=== PATIENT | male | born 1955 | race Caucasian/White ===

== ENCOUNTER 2019-12-25 16:27 | Inpatient (IN) | payer MEDICARE, OTHER ==
[2019-12-25 16:59] LABS: Hemoglobin 12.9 g/dL (14.0-18.0); Mean Corpuscular HGB CONC 32.2 g/dL (32.0-36.0); Mean Corpuscular Hemoglobin 31.4 pg (27.0-31.0); Mean Corpuscular Volume 97.6 fL (78.0-98.0); Mean Platelet Volume 8.2 fL (7.4-10.4); Platelet Count 189 thou/uL (130-400); RBC Distribution Width 11.1 % (11.5-14.5); Red Blood Cell (RBC) Count 4.11 mill/uL (4.70-6.10); White Blood Cell (WBC) Count 1.2 thou/uL (4.8-10.8)
[2019-12-25] MEDS ORDERED: Vancomycin 1 GM/200 ML BAG ONE (17:10)
[2019-12-25] MEDS ORDERED: Cefepime 2 GM VIAL ONE (17:10)
[2019-12-25] MEDS ORDERED: Acetaminophen 325 MG TAB ONE (17:10)
[2019-12-25 17:14] LABS: Band 3 % (5-11); Eosinophils 1 % (0-10); Lymphocytes 51 % (21-51); MDiff Complete? YES; Monocytes 35 % (0-10); Neutrophil 5 % (42-75); Platelet Morphology Comment Appears Adequate; Polychromasia SLIGHT = 2-3 cells (100X) (0-2/hpf); Reactive Lymphocytes 4 % (0-10)
[2019-12-25 17:18] LABS: ALT (SGPT) 31 U/L (8-55); AST (SGOT) 27 U/L (5-34); Albumin 3.1 g/dL (3.4-4.8); Alkaline Phosphatase 83 U/L (40-110); Anion Gap 13 mmol/L (10-20); BUN (Urea Nitrogen) 23 mg/dL (8.4-25.7); Bilirubin, Total 0.9 mg/dL (0.2-1.2); CK (CPK) 34 U/L (30-200); Calc. Creatinine Clearance 0 mL/min (70-130); Calcium 8.3 mg/dL (7.8-10.44); Carbon Dioxide 29 mmol/L (23-31); Chloride 91 mmol/L (98-107); Estimated GFR-MDRD Greater than 90; Globulin 3.6 g/dL (2.4-3.5); Glucose 132 mg/dL (80-115); Protein, Total 6.7 g/dL (5.8-8.1); Sodium 129 mmol/L (136-145)
[2019-12-25 17:38] LABS: CKMB 0.6 ng/mL (0-6.6)
--- NOTE | 2019-12-25 18:24 | RAD ---
2 views chest: 12/25/2019 COMPARISON: 12/14/2019 HISTORY: Sepsis FINDINGS: Stable CT injectable left-sided Port-A-Cath. No pneumothorax or pleural fluid. No focal con solidation or alveolar edema. Partially imaged gastrostomy tube present. Stable anterior wedge compression deformity of the upper lumbar spine. IMPRESSION: Stable appearance of the chest-no acute findings.
[2019-12-25] MEDS ORDERED: Senokot S 8.6-50 MG TAB PO PRN (19:36)
[2019-12-25 20:42] LABS: Troponin I 0.032 ng/mL (< 0.028)
[2019-12-25] MEDS: Cefepime 2 GM in Sodium Chloride 0.9% 100 ML IVPB SCH (23:09)
[2019-12-25] MEDS: Sodium Chloride 0.9% 1,000 ML IV SCH (23:09)
[2019-12-25] MEDS: Acetaminophen 325 MG TAB PO PRN (23:10)
[2019-12-25] MEDS: Atorvastatin Calcium 40 MG TAB PER TUBE SCH ×2 (23:10→23:41)
[2019-12-25] MEDS: Nystatin 500,000 UNITS/5 ML UDCUP SSW SCH (23:10)
[2019-12-25 23:42] LABS: Troponin I 0.038 ng/mL (< 0.028)
[2019-12-26] MEDS ORDERED: Calcium Carbonate 500 MG ChewTAB PO PRN (01:48)
[2019-12-26] MEDS: Melatonin 3 MG TAB PO PRN ×2 (02:00→22:58)
--- NOTE | 2019-12-26 02:54 | HP ---
CHIEF COMPLAINT: Generalized weakness and dizziness. 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 He is currently on chemotherapy. He got his chemotherapy last week. The patient stated that today he just did not feel well. He started feeling dizzy, felt unsteady. He also has been having some issues with swallowing and also felt very very cold and one day requiring another blanket. He denies any diarrhea; however, he is on PEG tube feedings. He states that he does have a cough, but nothing more than usual. In the ED, he was found to have a fever of 102.0 and also was found to be neutropenic. PAST MEDICAL HISTORY: He does not have any medical history. He did have a history of hypertension, but is not taking any medications. PAST SURGICAL HISTORY: He has a port placement and a PEG tube placement. SOCIAL HISTORY: He was a smoker, quit in 2006. He was a heavy drinker and denies any recreational drug use. He is a full code. REVIEW OF SYSTEMS: All negative except for the ones mentioned above in the HPI. FAMILY HISTORY: He does not know. He was adopted. ALLERGIES: HE HAS NO KNOWN DRUG ALLERGIES. MEDICATIONS: He is currently on; 1. Atorvastatin 40 mg daily. 2. Nicotine patch. 3. Albuterol as needed. LABORATORY RESULTS: As of the following; WBCs of 1.2, hemoglobin of 12.9, hematocrit of 40.1, platelets of 189. He does have 3 bands. Chemistry; sodium 129, potassium of 4.0, BUN of 20, creatinine 0.68. His troponin was mildly elevated at 0.034. He did have a chest x-ray, which indicated no acute abnormalities. PHYSICAL EXAMINATION: VITAL SIGNS: Are as of the following; his temperature 101.7, his heart rate was 119, respirations of 18, blood pressure 145/87, oxygen saturation 95% on room air. GENERAL: He is awake, alert, and oriented x3. Does not appear in any distress. HEENT: Normocephalic, atraumatic. No lymphadenopathy noted. His oral cavity, he does have some specks of thrush noted to his mucous membrane. He has some erythema also. CV: S1, S2 present. Sinus tach. Regular. LUNGS: Clear to auscultation. No rhonchi or wheezes noted. ABDOMEN: He does have a PEG tube. Has some erythema around it, but does not appear to be infected. Bowel sounds are present x2. No pain upon palpation. EXTREMITIES: Lower extremity pulses are present x2 bilaterally. He does have some significant erythema not specific to one toe, but all his toes bilaterally. NEUROVASCULAR: No focal deficits noted. CHEST WALL: He does have a port placed into his left chest wall area, which appears to be intact. He does have some suturing around it, which also appears to be noninfected. ASSESSMENT AND PLAN: The patient is a 64-year-old male, who presents to the hospital with complaints of generalized weakness and was found to have a fever. 1. Neutropenic fever. The patient had a fever. He also is neutropenic. I will go ahead and start him on cefepime. He received cefepime and vancomycin in the ER. He had blood cultures collected. They were unable to collect a urine culture on him. He does not have any upper respiratory symptoms. However, we will go ahead and check an influenza also, may consult Infectious Disease. His port site and his PEG site have some mild erythema; however, there is no overt redness or discharge noted. 2. Neutropenia. Again, we will continue to monitor him closely. We will put him on neutropenic precautions and also neutropenic food. 3. Hyponatremia. We will check a serum osmolality and a urine sodium and urine osmolality. 4. Mildly elevated troponins. The patient upon reviewing his chart prior to his diagnosis of cancer, was initially taken to [facility] in [place] for stroke workup. At that time, he was found to have significant stenosis of his right and left carotid arteries. He was noted to have 90% stenosis of the right internal carotid artery and 60% to 69% stenosis of the left internal carotid artery. However, given his recent diagnosis of cancer, no vascular surgery was recommended. 5. Deep venous thrombosis prophylaxis. We will put the patient on SCDs. 6. Nutrition. The patient now requires 4 cans of supplements. His goal is supposed to be 6. His does not recall the name of supplement, she is going to bring it later on tonight and this is the fact that because he was having some dysphagia at his previous hospitalization, a PEG tube was inserted. Job ID: [id number]
[2019-12-26 04:22] LABS: Bacteria/HPF None Seen HPF (None Seen); Bilirubin Negative (Negative); Blood, Urine Negative (Negative); Clarity Clear (Clear); Glucose, Urine (Dipstick) Normal (Negative); Leukocyte Negative Leu/uL (Negative); Nitrite Negative (Negative); Protein, Urine (Dipstick) 70 mg/dL (Neg-Trace); Squamous Epithelial 0-3 HPF (0-3); Urobilinogen Normal mg/dL (Less than 2); WBC/HPF 0-3 HPF (0-3)
[2019-12-26 04:30] LABS: Urine Culture Reflex No No
[2019-12-26 05:00] LABS: Anion Gap 10 mmol/L (10-20); BUN (Urea Nitrogen) 18 mg/dL (8.4-25.7); Calc. Creatinine Clearance 112 mL/min (70-130); Calcium 7.4 mg/dL (7.8-10.44); Carbon Dioxide 25 mmol/L (23-31); Chloride 95 mmol/L (98-107); Estimated GFR-MDRD Greater than 90; Glucose 112 mg/dL (80-115); Potassium 3.5 mmol/L (3.5-5.1); Sodium 126 mmol/L (136-145)
[2019-12-26 05:33] LABS: Band 2 % (5-11); Hemoglobin 10.2 g/dL (14.0-18.0); Lymphocytes 38 % (21-51); MDiff Complete? YES; Mean Corpuscular HGB CONC 33.7 g/dL (32.0-36.0); Mean Corpuscular Hemoglobin 32.8 pg (27.0-31.0); Mean Corpuscular Volume 97.3 fL (78.0-98.0); Mean Platelet Volume 8.3 fL (7.4-10.4); Monocytes 44 % (0-10); Neutrophil 16 % (42-75); Platelet Count 138 thou/uL (130-400); Platelet Morphology Comment Appears Adequate; RBC Distribution Width 10.9 % (11.5-14.5); White Blood Cell (WBC) Count 2.3 thou/uL (4.8-10.8)
[2019-12-26] MEDS: Sodium Chloride 0.9% 1,000 ML IV SCH ×2 (07:27→19:45)
[2019-12-26] MEDS ORDERED: Prevnar 13-Val Conj/PF 0.5 ML SYRINGE IM ONE (07:45)
[2019-12-26] MEDS: Cefepime 2 GM in Sodium Chloride 0.9% 100 ML IVPB SCH ×2 (09:55→20:50)
[2019-12-26] MEDS: Saccharomyces boulardii 250 MG CAP PO SCH (09:55)
[2019-12-26] MEDS: Nystatin 500,000 UNITS/5 ML UDCUP SSW SCH ×4 (09:56→20:50)
[2019-12-26] MEDS: Enoxaparin Sodium 40 MG/0.4 ML SYRINGE SC SCH (09:56)
[2019-12-26] MEDS ORDERED: Vancomycin 1 GM in Premix Bag 1 BAG IVPB SCH (11:00)
[2019-12-26] MEDS: Nicotine 7 MG PATCH TD SCH (12:13)
--- NOTE | 2019-12-26 14:32 | PDOC.HOSPP ---
- Subjective Encounter Date: 12/26/19 Encounter Time: 07:20 Subjective: Pt seen for followup re; sepsis. Denies chest pain or shortness of breath. No urinary symptoms. No cough. - Objective Vital Signs & Weight: Vital Signs (12 hours) Temp Pulse Resp BP Pulse Ox 12/26/19 12:12 98.2 F 106 H 20 132/71 95 12/26/19 07:40 104 H 20 128/73 98 12/26/19 03:52 98.2 F 107 H 18 123/62 95 Weight Weight 139 lb 11.2 oz I&O: 12/25/19 12/26/19 12/27/19 06:59 06:59 06:59 Intake Total 150 Output Total 325 Balance -175 Result Diagrams: 12/26/19 03:57 12/26/19 03:57 Additional Labs: Labs and MARs reviewed by me EKG Reviewed by me: Yes (Tele: sinus tachycardia) Hospitalist ROS - Review of Systems Constitutional: reports: fever. denies: chills, sweats, weakness, malaise Respiratory: denies: cough, shortness of breath, SOB with excertion, pleuritic pain, wheezing Cardiovascular: denies: chest pain, palpitations, orthopnea, paroxysmal noc. dyspnea, edema, light headedness Gastrointestinal: denies: nausea, vomiting, abdominal pain, diarrhea, constipation, melena, hematochezia Genitourinary: denies: dysuria, frequency, incontinence, hematuria, retention Skin: denies: rash, lesions, shayla, bruising - Medication Medications: Active Medications Generic Name Dose Route Start Last Admin Trade Name Freq PRN Reason Stop Dose Admin Acetaminophen 650 mg 12/25/19 19:36 12/25/19 23:10 Tylenol PO 650 mg Q4H PRN Administration Headache/Fever/Mild Pain (1-3) Atorvastatin Calcium 40 mg 12/25/19 21:00 12/25/19 23:41 Lipitor PER TUBE Not Given QPM [facility] Calcium Carbonate 1,000 mg 12/26/19 01:48 12/26/19 01:59 Tums PO 1,000 mg Q4H PRN Administration Heartburn or Indigestion Enoxaparin Sodium 40 mg 12/26/19 09:00 12/26/19 09:56 Lovenox SC 40 mg 0900 FLORINDA Administration Cefepime HCl 2 gm/ Sodium 100 mls @ 200 mls/hr 12/25/19 21:00 12/26/19 09:55 Chloride IVPB 100 mls Q12HR FLORINDA Administration Sodium Chloride 1,000 mls @ 100 mls/hr 12/25/19 19:45 12/26/19 07:27 Normal Saline 0.9% IV Not Given .Q10H FLORINDA Vancomycin HCl 1 gm/ Device 200 mls @ 200 mls/hr 12/26/19 11:00 12/26/19 12: 12 IVPB 200 mls 1100,2300 FLORINDA Administration Melatonin 3 mg 12/26/19 01:49 12/26/19 02:00 Melatonin PO 3 mg HS PRN Administration Insomnia Nicotine 7 mg 12/26/19 10:00 12/26/19 12:13 Nicoderm Patch TD 7 mg Q24HR FLORINDA Administration Nystatin 500,000 units 12/25/19 21:00 12/26/19 09:56 Mycostatin SSW 500,000 units QID FLORINDA Administration Saccharomyces Boulardii 250 mg 12/26/19 09:00 12/26/19 09:55 Florastor PO 250 mg DAILY FLORINDA Administration - Exam General Appearance: awake alert Eye: anicteric sclera ENT: no oropharyngeal lesions, moist mucosa Neck: supple, symmetric, no JVD, no thyromegaly, no lymphadenopathy Heart: no gallops, no rubs, normal peripheral pulses Heart - other findings: S1, S2, reg, tachy Respiratory: CTAB, no wheezes, no rales, no ronchi, normal chest expansion Gastrointestinal: soft, non-tender, non-distended, normal bowel sounds Gastrointestinal - other findings: G-tube Extremities: no edema Skin: no rashes Psychiatric: normal affect, normal behavior, A&O x 3 Hosp A/P (1) Sepsis Code(s): A41.9 - SEPSIS, UNSPECIFIED ORGANISM Status: Acute (2) Neutropenic fever Code(s): D70.9 - NEUTROPENIA, UNSPECIFIED; R50.81 - FEVER PRESENTING WITH CONDITIONS CLASSIFIED ELSEWHERE Status: Acute (3) Hyponatremia Code(s): E87.1 - HYPO-OSMOLALITY AND HYPONATREMIA Status: Acute (4) Elevated troponin Code(s): R79.89 - OTHER SPECIFIED ABNORMAL FINDINGS OF BLOOD CHEMISTRY Status : Acute (5) Essential hypertension Code(s): I10 - ESSENTIAL (PRIMARY) HYPERTENSION Status: Chronic (6) Hypopharyngeal cancer Code(s): C13.9 - MALIGNANT NEOPLASM OF HYPOPHARYNX, UNSPECIFIED Status: Chronic - Plan plan discussed w/ family, continue antibiotics, PT/OT, out of bed/ambulate, DVT proph w/lovenox Continue IV cefepime and vancomycin, follow cultures. Consult oncology re: neutropenia. Consult nephrology re: hyponatremia. No chest pain. Likely NSTEMI type II secondary to sepsis. Obtain report of recent 2D echo from [facility]. G-tube feeds. ID consulted re; neutropenic fever.
--- NOTE | 2019-12-26 17:02 | CON ---
DATE OF CONSULTATION: 12/26/2019 REASON FOR CONSULTATION: Bacteremia and neutropenia. HISTORY OF PRESENT ILLNESS: A 64-year-old gentleman, who has a history of hypertension and was diagnosed with hypopharyngeal squamous cell cancer. He has been managed with chemotherapy through a port in the left subclavian location. This all developed over the past few weeks and he kept immobile a few days ago and the day before yesterday, he started feeling unwell. On the day of admission, he developed chills and some cough. He was evaluated and found to be neutropenic with fever and was admitted. He is currently awake. He is a little bit dysphonic, but no headaches or visual symptoms. A little bit of sore throat. A little bit of cough, but no sputum production. No chest pain. No back pain or abdominal pain. No diarrhea. No genitourinary symptoms. No neurological symptoms. PAST MEDICAL HISTORY: Squamous cell cancer of the hypopharynx on chemo, hypertension, port placement, and gastrostomy tube placement. SOCIAL HISTORY: Quit smoking in 2006. He used to drink heavily. No other drug use. He lives in [place], I believe with his and family. FAMILY HISTORY: Noncontributory. He is actually was adopted. ALLERGIES: NONE. MEDICATIONS: Currently on: 1. Lipitor. 2. Tums. 3. Cefepime. 4. Lovenox. 5. Melatonin. 6. Mycostatin. 7. Florastor. 8. Senokot. 9. Vancomycin. PHYSICAL EXAMINATION: VITAL SIGNS: Temperature max 102.2 and now 98.2, blood pressure 130/70, pulse 106, respirations 20, and O2 saturation 95. SKIN: Normal. The patient has a port with stitches from the surgery for the port placement. The port is not accessed at this time. The patient has a peripheral IV access. No Covarrubias catheter. No other skin lesions. No lymphadenopathy. HEENT: Ocular movements conjugate. Sclerae white. Oral cavity somewhat dry oral mucosa still quite a few teeth in place with quite a bit of decay and gum disease. NECK: Supple. No jugular vein distention. LUNGS: Symmetric clear breath sounds. HEART: S1 and S2. Regular rate. ABDOMEN: Soft, not distended or tender. No ascites. No bladder distention. EXTREMITIES: No joint inflammatory activity. Pulses are 1+ in dorsalis pedis. No edema. Moves all extremities equally. NEUROLOGIC: Cognitive function appears to be intact. LABORATORY DATA: White cell count is 1.2. On arrival, he had only 8% neutrophils altogether, so that would make it up to less than 100 total neutrophils in circulation. Today it is already up to about 400, the hemoglobin is at 10 and platelets 138. Sodium 126, creatinine 0.58, and albumin 3.1. Liver profile normal. Globulin 3.6. Urinalysis normal and blood culture 1/2 sets of blood cultures with E. coli. The report does not indicate resistant strain of E. coli. There is C. diff test in stool, which was negative and influenza test as well, which was negative. ASSESSMENT: Recently diagnosed hypopharyngeal squamous cell cancer on chemo, who has been fed via gastrostomy and now has developed neutropenia with fever and Escherichia coli bacteremia. DISCUSSION: the source of the bacteremia is not certain, although gastrointestinal tract is a possibility. The oral cavity is the second most likely possibility, respiratory tract less likely, urinary tract unlikely. He does have a history of heavy alcohol use in the past, so he may have liver cirrhosis that has not yet been diagnosed. The patient is receiving cefepime and I am going to go ahead and discontinue the vancomycin and just continue the cefepime and with this kind of chemotherapeutic regimen he is getting, typically the white cells rebound pretty quickly and when that happens all the problems are solved for the moment. The patient could be potentially discharged on oral antimicrobial therapy according to susceptibility results, there is still the possibility of colonization of the port either now or in the future. Typically when there is colonization of the port, the both sets of blood cultures are positive. In this case, only one appears to be, so, if that is the final result, then I would make it unlikely that he has colonization of the port at least for now. Again in the future, this may become an issue. Job ID: [id number] [facility]
[2019-12-26 18:01] LABS: Anion Gap 9 mmol/L (10-20); BUN (Urea Nitrogen) 15 mg/dL (8.4-25.7); Calc. Creatinine Clearance 118 mL/min (70-130); Calcium 7.5 mg/dL (7.8-10.44); Carbon Dioxide 28 mmol/L (23-31); Chloride 94 mmol/L (98-107); Estimated GFR-MDRD Greater than 90; Glucose 104 mg/dL (80-115); Potassium 3.6 mmol/L (3.5-5.1); Sodium 127 mmol/L (136-145)
--- NOTE | 2019-12-26 18:43 | CON ---
DATE OF CONSULTATION: REASON FOR CONSULTATION: Neutropenic fever. HISTORY OF PRESENT ILLNESS: Mr. Dumont is a 64-year-old gentleman, who was diagnosed with squamous cell carcinoma of the hypopharynx. He lives in [place] and had stroke-like symptoms, so was taken by EMS to [facility] in [place]. During that workup, which was negative for CVA. He was noted to have a left hypopharyngeal mass extending from the epiglottis measuring 3 x 3 x 8 cm. He had a bulky necrotic left retropharyngeal lymph node. He had a solitary posterior right upper lobe pleural-based nodule. His MRI of his brain was negative. He was seen by ENT and there was concern that he may have encroachment of his airway. He had a MediPort and PEG tube placed as he had significant dysphagia. The plan was to start induction chemotherapy; however, the patient and family wanted to be transferred to this facility, which is closer to their home. He was transferred to [place] on December 14. He received induction chemotherapy with Taxotere, cisplatin, and infusional 5-FU. This was reduced dose and completed on of last week. He did receive Fulphila on Wednesday. He was also discharged home on Wednesday and was doing well. He saw Dr. Riojas yesterday for evaluation as he needs his teeth pulled to begin radiation. At the end of that visit, he became very weak and unable to stand. He had a "glazed look in his eye." His family brought him to the ER for evaluation. He was noted to have 102 fever. His white count was 1.2 with no neutrophils. He was fuentes-cultured and admitted for sepsis. His one of two blood cultures returned E coli. His C diff was negative. His flu was negative. He is on IV antibiotics and IV hydration as tube feeds have been resumed. We were asked to see the patient for recommendations. PAST MEDICAL HISTORY: 1. Squamous cell carcinoma of the hypopharynx, diagnosed in November 2019. 2. Hypertension. PAST SURGICAL HISTORY: 1. MediPort placement. 2. PEG tube placement. ALLERGIES: NO KNOWN DRUG ALLERGIES. HOME MEDICATIONS: 1. Nicotine patch. 2. Zofran p.r.n. FAMILY HISTORY: Noncontributory. SOCIAL HISTORY: He is , lives with his spouse. 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 Daily alcohol and tobacco use, which he has stop since being diagnosed. REVIEW OF SYSTEMS: A 10-point review of systems is negative except for noted in HPI. PHYSICAL EXAMINATION: VITAL SIGNS: Temperature 98.2, T-max 102.3, heart rate 106, respiratory rate 20 , blood pressure is 132/71, and he is 95% on room air. GENERAL: This is a well-developed, well-nourished male, in no acute distress. HEENT: Normocephalic and atraumatic. Pupils equal and react to light. NECK: Supple. CV: Regular rate and rhythm. LUNGS: Clear. ABDOMEN: Soft and nontender. He has PEG tube in place. EXTREMITIES: No clubbing or cyanosis. SKIN: No rash. HEMATOLOGIC: No petechiae or purpura. NEUROLOGIC: Nonfocal. LYMPH: His left hypopharyngeal mass has diminished in size since last week. PERTINENT LABORATORY DATA AND X-RAYS: Current WBCs are 2.3, hemoglobin 10.2, hematocrit 30.1, platelet count 138,000. He has 16% neutrophils, 2% bands, 38% lymphocytes, and 44% monocytes. Sodium is 126, potassium 3.5, chloride 95, CO2 is 25, BUN is 18, creatinine 0.58, lactic acid 1.7, calcium 7.4. Bilirubin 0.9, AST is 27, ALT is 31, alkaline phosphatase is 83, creatine kinase is 34, CK-MB is 0.6, and troponin is 0.038. Serum total protein 6.7, albumin 3.1, and globulin 3.6. Urine is negative for bacteria. ASSESSMENT: 1. Neutropenic fever, status post cycle 1 of chemotherapy for squamous cell carcinoma of the hypopharynx. 2. Escherichia coli bacteremia. 3. Hyponatremia. 4. Elevated troponins, likely secondary to sepsis. DISCUSSION: The patient is on antibiotics for E. coli. He is receiving IV fluids for maintenance. His PEG feeds have been resumed. He will be seen by Nephrology for his hyponatremia. I do expect his white count and neutrophils to improve over the next few days as he did receive pegfilgrastim. He is due for tooth extraction on Wednesday, suggested to the that she call and postpone that. He also sees ENT Wednesday afternoon, which hopefully he can be discharged from this facility by or Wednesday morning to follow up with ENT, so we can proceed on schedule with his next cycle of chemotherapy. He is due to start radiation as soon as his teeth have been extracted and he has been seen by ENT. Thank you for the consult. We will follow along with his hospitalization. Job ID: [id number] [facility]TD[facility]
[2019-12-26] MEDS: Atorvastatin Calcium 40 MG TAB PER TUBE SCH (20:49)
--- NOTE | 2019-12-27 00:21 | CON ---
DATE OF CONSULTATION: REASON FOR CONSULTATION: Hyponatremia. HISTORY OF PRESENT ILLNESS: This is a very pleasant 64-year-old gentleman, who presented to the hospital yesterday with generalized weakness and dizziness. The patient also was noted to have a sodium of 129 and was started on normal saline and the sodium has dropped to 126. The patient denies headache, numbness, tingling, or weakness. Denies any nausea, vomiting, or chest pain. PAST MEDICAL HISTORY: Hypertension, history of PEG placement, history of squamous cell carcinoma of the hypopharynx, status post chemotherapy. SOCIAL HISTORY: No alcohol or drug use. FAMILY HISTORY: Negative for ESRD. ALLERGIES: REVIEWED. HOME MEDICATIONS: List reviewed. HOSPITAL MEDICATIONS: List reviewed. REVIEW OF SYSTEMS: 15-point review of systems was performed, negative except for positive noted above. HEENT: Eyes intact, no diplopia. Ears: No hearing loss or earache. Nose: No discharge or bleeding. Chest: No cough or phlegm. Abdomen: No nausea or vomiting. Genitourinary: No hematuria. No Covarrubias catheter. Musculoskeletal: No low back pain. No joint swelling or pain. Neurological: No syncope. No seizures. Skin: No complaints of rash or itching. Psychiatric: No depression. Constitutional: No weight loss or loss of appetite. PHYSICAL EXAMINATION: GENERAL: The patient is awake and alert. VITAL SIGNS: Afebrile, pulse 75, breathing 16, and blood pressure 145/87. HEENT: Head normocephalic and atraumatic. Eyes intact, no ulcers. Nose intact, no ulcers. Ears intact, no ulcers. Neck: Supple. No JVD. Chest: Symmetrical and clear. Cardiovascular: Shows S1 and S2, no rub, no murmur. Gastrointestinal: Abdomen is soft, bowel sounds positive. Extremities: Show no edema or ulcers. Skin: Shows no rash or petechiae. Musculoskeletal: Shows no joint swelling or stiffness. Genitourinary: Shows no Covarrubias or CVA tenderness. Neurologic: Motor intact. Cranial nerves intact. LABORATORY DATA: Reviewed. ASSESSMENT: Hyponatremia, most likely because of syndrome of inappropriate antidiuretic hormone secretion. Stop IV fluids. Recommend 1.8 mL fluid restriction. Hypocalcemia, recommend calcium replacement. Medication based on GFR appropriate. No indication for hypertonic saline. Would recommend rechecking sodium in a couple of hours. Job ID: [id number]
[2019-12-27] MEDS ORDERED: Melatonin 3 MG TAB PO SCH (03:00)
[2019-12-27] MEDS ORDERED: FLU VACC TS2019-20(65YR UP)/PF 180 MCG/0.5 ML SYRINGE IM ONE (09:00)
[2019-12-27] MEDS: Nystatin 500,000 UNITS/5 ML UDCUP SSW SCH ×4 (09:46→19:53)
[2019-12-27] MEDS: Enoxaparin Sodium 40 MG/0.4 ML SYRINGE SC SCH (09:46)
[2019-12-27] MEDS: Cefepime 2 GM in Sodium Chloride 0.9% 100 ML IVPB SCH ×2 (09:46→19:52)
[2019-12-27] MEDS: Saccharomyces boulardii 250 MG CAP PO SCH (09:47)
--- NOTE | 2019-12-27 10:40 | PDOC.MOPN ---
Interval History: Afebrile, feels much better today - Vital Signs Vital Signs: Vital Signs (12 hours) Temp Pulse Resp BP Pulse Ox 12/27/19 07:57 98.2 F 107 H 18 129/79 97 12/27/19 04:00 97.9 F 106 H 18 126/68 98 Weight Weight 140 lb 1.6 oz - Physical Exam General: Alert, Oriented x3, No acute distress HEENT: Atraumatic, PERRLA, EOMI, Mucous membr. moist/pink Lungs: Clear to auscultation, Normal air movement Cardiovascular: Regular rate, Normal S1, Normal S2, No murmurs, Gallops, Rubs Abdomen: Normal bowel sounds, Soft, No tenderness, No hepatospenomegaly, No masses Extremities: No clubbing, No cyanosis, No edema, Normal pulses, No tenderness/ swelling Skin: No rashes, No breakdown, No significant lesion Neurological: Normal gait, Normal speech, Strength at 5/5 X4 ext, Normal tone, Sensation intact, Cranial nerves 3-12 NL, Reflexes 2+ Psych/Mental Status: Mental status NL, Mood NL - Labs Result Diagrams: 12/26/19 03:57 12/26/19 17:29 Lab results: Laboratory Results - last 24 hr 12/26/19 17:29: Sodium 127 L, Potassium 3.6, Chloride 94 L, Carbon Dioxide 28, Anion Gap 9 L, BUN 15, Creatinine 0.55 L, Estimated GFR (MDRD) Greater than 90 , Glucose 104, Calcium 7.5 L Status: pending A/P - Problem (1) Hyponatremia Current Visit: Yes Code(s): E87.1 - HYPO-OSMOLALITY AND HYPONATREMIA Status : Acute (2) Neutropenic fever Current Visit: Yes Code(s): D70.9 - NEUTROPENIA, UNSPECIFIED; R50.81 - FEVER PRESENTING WITH CONDITIONS CLASSIFIED ELSEWHERE Status: Acute (3) Hypopharyngeal cancer Current Visit: No Code(s): C13.9 - MALIGNANT NEOPLASM OF HYPOPHARYNX, UNSPECIFIED Status: Chronic - Plan Plan: 1. CBC pending today, did receive Fulphila on Wednesday 2. Continue abx for e. coli infection 2. Nephro managing hyponatremia
[2019-12-27 11:25] LABS: Anion Gap 9 mmol/L (10-20); BUN (Urea Nitrogen) 12 mg/dL (8.4-25.7); Calc. Creatinine Clearance 123 mL/min (70-130); Calcium 7.8 mg/dL (7.8-10.44); Carbon Dioxide 26 mmol/L (23-31); Chloride 95 mmol/L (98-107); Estimated GFR-MDRD Greater than 90; Glucose 116 mg/dL (80-115); Potassium 3.2 mmol/L (3.5-5.1); Sodium 127 mmol/L (136-145)
[2019-12-27 11:56] LABS: Hemoglobin 11.8 g/dL (14.0-18.0); Mean Corpuscular HGB CONC 33.2 g/dL (32.0-36.0); Mean Corpuscular Hemoglobin 32.8 pg (27.0-31.0); Mean Corpuscular Volume 98.8 fL (78.0-98.0); Mean Platelet Volume 8.1 fL (7.4-10.4); Platelet Count 140 thou/uL (130-400); Red Blood Cell (RBC) Count 3.59 mill/uL (4.70-6.10); White Blood Cell (WBC) Count 9.7 thou/uL (4.8-10.8)
[2019-12-27 12:01] LABS: Band 17 % (5-11); Dohle Bodies SLIGHT; Lymphocytes 10 % (21-51); MDiff Complete? YES; Monocytes 19 % (0-10); Neutrophil 54 % (42-75); Platelet Morphology Comment Appears Adequate; Polychromasia SLIGHT = 2-3 cells (100X) (0-2/hpf)
[2019-12-27] MEDS: Nicotine 7 MG PATCH TD SCH (12:15)
--- NOTE | 2019-12-27 14:10 | PRG ---
DATE OF SERVICE: 12/27/2019 SUBJECTIVE: This is a 64-year-old gentleman, being seen for hyponatremia. The patient denies any nausea, vomiting, or chest pain. OBJECTIVE: GENERAL: The patient is awake and alert. VITAL SIGNS: Afebrile, pulse 75, breathing at 16, and blood pressure 111/62. HEENT: Head normocephalic and atraumatic. Eyes intact, no ulcers. Nose intact, no ulcers. Ears intact, no ulcers. Neck: Supple. No JVD. Chest: Symmetrical and clear. Cardiovascular: Shows S1 and S2, no rub, no murmur. Gastrointestinal: Abdomen is soft, bowel sounds positive. Extremities: Show no edema or ulcers. Skin: Shows no rash or petechiae. Musculoskeletal: Shows no joint swelling or stiffness. Genitourinary: Shows no Covarrubias or CVA tenderness. Neurologic: Motor intact. Cranial nerves intact. LABORATORY DATA: Labs show sodium is 127, potassium 3.2. ASSESSMENT AND RECOMMENDATION: 1. Hyponatremia, improving. Recommend stopping all free fluids. 2. Hypokalemia. Recommend 40 mEq of potassium. 3. Hypomagnesemia. Recheck stat magnesium. No indication for hypertonic saline. Job ID: [id number]
[2019-12-27 15:25] VITALS: BMI 22.6
[2019-12-27 16:57] LABS: Anion Gap 10 mmol/L (10-20); BUN (Urea Nitrogen) 13 mg/dL (8.4-25.7); Calc. Creatinine Clearance 123 mL/min (70-130); Calcium 7.7 mg/dL (7.8-10.44); Carbon Dioxide 27 mmol/L (23-31); Chloride 95 mmol/L (98-107); Estimated GFR-MDRD Greater than 90; Glucose 106 mg/dL (80-115); Magnesium 1.3 mg/dL (1.6-2.6); Potassium 3.8 mmol/L (3.5-5.1); Sodium 128 mmol/L (136-145)
--- NOTE | 2019-12-27 19:07 | PDOC.HOSPP ---
- Subjective Encounter Date: 12/27/19 Encounter Time: 19:06 Subjective: Pt seen for followup re: sepsis. Feels better. No fevers. - Objective Vital Signs & Weight: Vital Signs (12 hours) Temp Pulse Resp BP Pulse Ox 12/27/19 15:38 98.3 F 99 19 127/72 97 12/27/19 11:54 98.3 F 102 H 25 H 111/68 96 12/27/19 07:57 98.2 F 107 H 18 129/79 97 Weight Admit Weight 139 lb 11.2 oz Weight 140 lb 1.6 oz I&O: 12/26/19 12/27/19 12/28/19 06:59 06:59 06:59 Intake Total 150 337 Output Total 325 Balance -175 337 Result Diagrams: 12/27/19 10:32 12/27/19 16:16 Additional Labs: Labs and MARs reviewed by me EKG Reviewed by me: Yes (Tele: NSR) Hospitalist ROS - Review of Systems Constitutional: denies: fever, chills, sweats, weakness, malaise Cardiovascular: denies: chest pain, palpitations, orthopnea, paroxysmal noc. dyspnea, edema, light headedness - Medication Medications: Active Medications Generic Name Dose Route Start Last Admin Trade Name Freq PRN Reason Stop Dose Admin Acetaminophen 650 mg 12/25/19 19:36 12/25/19 23:10 Tylenol PO 650 mg Q4H PRN Administration Headache/Fever/Mild Pain (1-3) Atorvastatin Calcium 40 mg 12/25/19 21:00 12/26/19 20:49 Lipitor PER TUBE Not Given QPM COUNTS INCLUDE 234 BEDS AT [facility] Calcium Carbonate 1,000 mg 12/26/19 01:48 12/26/19 01:59 Tums PO 1,000 mg Q4H PRN Administration Heartburn or Indigestion Enoxaparin Sodium 40 mg 12/26/19 09:00 12/27/19 09:46 Lovenox SC 40 mg 0900 FLORINDA Administration Cefepime HCl 2 gm/ Sodium 100 mls @ 200 mls/hr 12/25/19 21:00 12/27/19 09:46 Chloride IVPB 100 mls Q12HR FLORINDA Administration Magnesium Sulfate 1 gm/ Sodium 102 mls @ 100 mls/hr 12/27/19 17:15 12/27/19 17:47 Chloride IVPB 12/27/19 19:15 102 mls NOW FLORINDA Administration Melatonin 3 mg 12/26/19 01:49 12/26/19 22:58 Melatonin PO 3 mg HS PRN Administration Insomnia Nicotine 7 mg 12/26/19 10:00 12/27/19 12:15 Nicoderm Patch TD 7 mg Q24HR FLORINDA Administration Nystatin 500,000 units 12/25/19 21:00 12/27/19 17:48 Mycostatin SSW 500,000 units QID FLORINDA Administration Saccharomyces Boulardii 250 mg 12/26/19 09:00 12/27/19 09:47 Florastor PO 250 mg DAILY FLORINDA Administration - Exam General Appearance: NAD Eye: anicteric sclera ENT: moist mucosa Neck: supple Heart: RRR Respiratory: CTAB Gastrointestinal: soft, non-tender Gastrointestinal - other findings: PEG tube Extremities: no edema Musculoskeletal: no muscle wasting Psychiatric: normal affect, normal behavior Hosp A/P (1) Sepsis Code(s): A41.9 - SEPSIS, UNSPECIFIED ORGANISM Status: Acute (2) Hyponatremia Code(s): E87.1 - HYPO-OSMOLALITY AND HYPONATREMIA Status: Acute (3) Elevated troponin Code(s): R79.89 - OTHER SPECIFIED ABNORMAL FINDINGS OF BLOOD CHEMISTRY Status : Acute (4) Essential hypertension Code(s): I10 - ESSENTIAL (PRIMARY) HYPERTENSION Status: Chronic (5) 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 coli bacteremia (1/2 cultures), await sensitivities. Neutropenia resolved. Sodium stable at 127. No chest pain. Likely NSTEMI type II secondary to sepsis. Awaiting report of recent 2D echo from [facility]. Transfer to oncology floor if no regional wall motion abnormalities on echo. Continue G-tube feeds.
[2019-12-27] MEDS: Atorvastatin Calcium 40 MG TAB PER TUBE SCH (19:53)
[2019-12-27] MEDS: Melatonin 3 MG TAB PO PRN (23:10)
[2019-12-27] MEDS: Acetaminophen 325 MG TAB PO PRN (23:20)
[2019-12-28 04:34] LABS: Anion Gap 10 mmol/L (10-20); BUN (Urea Nitrogen) 13 mg/dL (8.4-25.7); Calc. Creatinine Clearance 128 mL/min (70-130); Calcium 7.7 mg/dL (7.8-10.44); Carbon Dioxide 25 mmol/L (23-31); Chloride 99 mmol/L (98-107); Estimated GFR-MDRD Greater than 90; Glucose 95 mg/dL (80-115); Potassium 3.7 mmol/L (3.5-5.1); Sodium 130 mmol/L (136-145)
[2019-12-28 04:40] LABS: Band 26 % (5-11); Hemoglobin 10.9 g/dL (14.0-18.0); Lymphocytes 10 % (21-51); MDiff Complete? YES; Mean Corpuscular HGB CONC 33.5 g/dL (32.0-36.0); Mean Corpuscular Hemoglobin 32.8 pg (27.0-31.0); Mean Corpuscular Volume 97.8 fL (78.0-98.0); Metamyelocyte 1 % (0-0); Monocytes 11 % (0-10); Neutrophil 52 % (42-75); Platelet Count 151 thou/uL (130-400); Platelet Morphology Comment Appears Adequate; RBC Distribution Width 11.1 % (11.5-14.5); Red Blood Cell (RBC) Count 3.32 mill/uL (4.70-6.10); White Blood Cell (WBC) Count 17.6 thou/uL (4.8-10.8)
--- NOTE | 2019-12-28 08:24 | PRG ---
DATE OF SERVICE: 12/27/2019 SUBJECTIVE: Mr. Dumont is sitting by the bedside, still looks chronically ill, but in no acute distress, ate breakfast and lunch today. No respiratory symptoms or abdominal pain. Voiding spontaneously in the urinal. OBJECTIVE: VITAL SIGNS: T-max 98.3, blood pressure 120/70, pulse 99, respirations 19, and O2 saturation 97. GENERAL: Appears chronically ill, but in no acute distress. He has a hard time in remembering certain events or information. LUNGS: Symmetric air entry. HEART: S1 and S2. Regular rate. There is some crackles in the left side, particularly in the upper lung. ABDOMEN: Soft, not distended. No bladder distention. LABORATORY DATA: White cell count is up to 9.7, hemoglobin 11.8, and platelets 140 with 17% bands. Creatinine is stable, 1 out of 2 sets with E. coli with pending susceptibilities. 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 Still waiting on susceptibilities of the organism. Once that is resulted, then hopefully will be able to switch him to oral antimicrobial for discharge planning, another 5 days should suffice to complete his treatment course. The patient does not have any obvious areas of secondary seeding at this time. Job ID: [id number] [facility]
[2019-12-28] MEDS: Nystatin 500,000 UNITS/5 ML UDCUP SSW SCH ×3 (09:17→16:34)
[2019-12-28] MEDS: Cefepime 2 GM in Sodium Chloride 0.9% 100 ML IVPB SCH (09:17)
[2019-12-28] MEDS: Enoxaparin Sodium 40 MG/0.4 ML SYRINGE SC SCH (09:18)
[2019-12-28] MEDS: Saccharomyces boulardii 250 MG CAP PO SCH (09:18)
[2019-12-28] MEDS: Nicotine 7 MG PATCH TD SCH (12:00)
--- NOTE | 2019-12-28 12:14 | PRG ---
DATE OF SERVICE: 12/28/2019 SUBJECTIVE: A 64-year-old gentleman being seen for hyponatremia. The patient denies any nausea, vomiting, or chest pain. PHYSICAL EXAMINATION: GENERAL: The patient is awake and alert. VITAL SIGNS: Afebrile, pulse 93, breathing at 16, blood pressure 137/65. HEENT: Head normocephalic and atraumatic. Eyes intact, no ulcers. Nose intact, no ulcers. Ears intact, no ulcers. NECK: Supple. No JVD. CHEST: Symmetrical and clear. CARDIOVASCULAR: Shows S1 and S2, no rub, no murmur. GASTROINTESTINAL: Abdomen is soft, bowel sounds positive. EXTREMITIES: Show no edema or ulcers. SKIN: Shows no rash or petechiae. MUSCULOSKELETAL: Shows no joint swelling or stiffness. GENITOURINARY: Shows no Covarrubias or CVA tenderness. NEUROLOGIC: Motor intact. Cranial nerves intact. LABORATORY DATA: Labs show hemoglobin 10.9. ASSESSMENT AND PLAN: 1. Hyponatremia, improved. 2. Chronic kidney disease stage 1, stable. 3. Hypertension, stable. 4. Hypomagnesemia. Would recommend checking magnesium in the morning and given 1 g of magnesium sulfate. I will sign off on this patient. Please reconsult as needed. Job ID: [id number]
[2019-12-28 16:24] VITALS: BP 134/72; TEMP 98.7
--- NOTE | 2019-12-29 14:48 | DIS ---
DATE OF ADMISSION: 12/25/2019 DATE OF DISCHARGE: 12/28/2019 DISCHARGE DIAGNOSES: 1. Neutropenic sepsis. 2. Escherichia coli bacteremia. 3. Hypopharyngeal cancer. 4. Hyponatremia likely secondary to some syndrome of inappropriate antidiuretic hormone secretion. 5. Non-ST elevation myocardial infarction type 2, likely secondary to sepsis. 6. Hypertension. 7. Hypomagnesemia. 8. Hypocalcemia. HISTORY OF PRESENT ILLNESS: This patient is a 64-year-old male, who has a history of the relatively recent diagnosis of hypopharyngeal cancer undergoing a dose of chemotherapy and experiencing neutropenia. The patient presented to the hospital complaining of generalized weakness and dizziness. He was febrile with a temperature of 102. He was subsequently admitted. HOSPITAL COURSE: The patient was started on broad-spectrum IV antibiotics. He was hyponatremic and had consultations from Nephrology. He also had consultations with Oncology and Infectious Disease. Ultimately, his blood cultures did grow E. coli. However, there was no specific source identified. Otherwise, he had been given and his white count rebounded promptly, he then became afebrile. He was asymptomatic. His sodium was felt to be likely due to some SIADH, had some fluid restriction, but his numbers came back up to 130 promptly, in reviewing his records that is where his baseline had been from the previous month. He was therefore felt to be stable for discharge. DISPOSITION: The patient is discharged to home his. DISCHARGE INSTRUCTIONS: Activity: As tolerated. He will remain on tube feeds. DISCHARGE MEDICATIONS: Include: 1. Cefpodoxime 400 mg p.o. b.i.d. 2. Nicotine patch. FOLLOWUP: He will follow up with Dr. Adia Redding in 7 days, Dr. Hilario Martinez and Dr. Tom Duran. He can return to the hospital should he have the need to do so at any time. TIME SPENT: Total time in discharge activities was 34 minutes. Job ID: [id number]
--- NOTE | 2019-12-30 12:23 | EKG ---
Test Reason : Blood Pressure : / mmHG Vent. Rate : 123 BPM Atrial Rate : 123 BPM P-R Int : 146 ms QRS Dur : 118 ms QT Int : 310 ms P-R-T Axes : -07 016 -08 degrees QTc Int : 443 ms Sinus tachycardia with Premature atrial complexes Incomplete right bundle branch block Septal infarct , age undetermined Abnormal ECG Confirmed by JOVANNY LOPES ([id number]), newspaper managing editor NATALIE CARRILLO ([id number]) on 12/30/2019 12:22:34 PM Referred By: Confirmed By:JOVANNY Tang
--- NOTE | 2019-12-31 05:48 | PQF ---
[employer] Winform ViewerCYRIL FAJARDO KARISHMA [id number] [id number] [id number] CLINICAL DOCUMENTATION CLARIFICATION FORM: POST DISCHARGE Addendum to original discharge summary date: ____ Late entry note date: __ DATE: 12/31/2019 ATTN: Arthur Conteh Please exercise your independent, professional judgment in responding to the clarification form. Clinical indicators are provided on the bottom of this form for your review Kindly clarify regarding ruled in/ruled out NSTEMI Please check appropriate box(s) to clarify if the following diagnosis has been ruled in or ruled out: NSTEMI [ ] Ruled in diagnosis [ ] Continue to treat [ ] Resolved [ ] Ruled out diagnosis [ ] Cannot rule out diagnosis [ x ] Other diagnosis ___NSTEMI type II secondary to sepsis [ ] Unable to determine In addition, please specify: Present on Admission (POA): [ x ] Yes [ ] No [ ] Unable to determine For continuity of documentation, please document condition throughout progress notes and discharge summary. Thank You. CLINICAL INDICATORS - SIGNS / SYMPTOMS / LABS Likely NSTEMI type II secondary to sepsis - Hospitalist progress note dated by Arthur Conteh Troponin is 0.038 on 12/25/19 - Laboratory Abnormal ECG - Echo done on 12/25/19 by [facility] [employer]ISK FACTORS Sepsis - Hospitalist progress note dated 12/25 by Arthur Conteh Hypertension - Hospitalist progress note dated 12/25 by Arthur Conteh TREATMENTS Echo done on 12/25/19 by [facility] Franco (This form is maintained as a part of the permanent medical record) [employer] Win[id number] [employer]. All Rights Reserved [email or web address] [email or web address]
== END 2019-12-28 18:56 | disposition home or self-care (01) | DRG 871 ==
LOC: ERS 16:27 → ERHOLD 19:14 → 2NO 22:05
PROVIDERS: ADMIT Internal Medicine; ATTEND Internal Medicine
DX: A41.89 Other specified sepsis (principal); I21.A1 Myocardial infarction type 2; E22.2 Syndrome of inappropriate secretion of antidiuretic hormone; D70.9 Neutropenia, unspecified; C13.9 Malignant neoplasm of hypopharynx, unspecified; A41.51 Sepsis due to Escherichia coli [E. coli]; R50.81 Fever presenting with conditions classified elsewhere; R79.89 Other specified abnormal findings of blood chemistry; I65.23 Occlusion and stenosis of bilateral carotid arteries; I12.9 Hypertensive chronic kidney disease with stage 1 through stage 4 chronic kidney disease, or unspecified chronic kidney disease; N18.1 Chronic kidney disease, stage 1; E83.42 Hypomagnesemia; E83.51 Hypocalcemia; E87.6 Hypokalemia; Z93.1 Gastrostomy status; Z87.891 Personal history of nicotine dependence; Z92.21 Personal history of antineoplastic chemotherapy
CPT/HCPCS: 36415; 71046; 80048; 80053; 81001; 82550; 82553; 83605; 83735; 84484; 85025; 87040; 87077; 87149; 87186; 87324; 87449; 87804; 90471; 90670; 93005; 96361; 96365; G0009; J0692; J1650; J3370; J3475; J3490

== ENCOUNTER 2020-01-04 09:04 | Outpatient (CLI) | payer MEDICARE, OTHER ==
--- NOTE | 2020-01-04 11:15 | PET ---
EXAM: PET CT skull to mid thigh COMPARISON: None HISTORY: Malignant neoplasm of the larynx TECHNIQUE: A PET/CT was performed from the skull to the mid thigh after administration of 12.3 millic uries of F-18 FDG. Evaluation was performed on a [employer] workstation. FINDINGS: NECK: There is a mass along the left lateral pharynx beginning above the base of the tongue, extendin g down to the false vocal cord. This has a max SUV value of 10.7. There is an enlarged left cervical lymph node measuring 1.9 cm in size with a max SUV value of 6.4. This is just above the leve l of the hyoid bone. CHEST: No areas of hypermetabolic activity ABDOMEN/PELVIS: No areas of hypermetabolic activity SKELETON: Diffuse nonfocal hypermetabolic activity may represent marrow activation. No focal areas of hypermetabolic activity CT images used for attenuation correction show atherosclerotic calcifications. A left-sided Mediport is seen with its tip in the superior vena cava. 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
== END 2020-01-04 09:05 | disposition home or self-care (01) ==
LOC: PET 09:04
PROVIDERS: ATTEND Internal Medicine Hematology & Oncology
DX: C32.9 Malignant neoplasm of larynx, unspecified (principal); C77.0 Secondary and unspecified malignant neoplasm of lymph nodes of head, face and neck
CPT/HCPCS: 78815; A9552

== ENCOUNTER 2020-01-24 16:48 | Inpatient (IN) | payer MEDICARE, OTHER ==
[2020-01-24] MEDS ORDERED: Vancomycin 1 GM/200 ML BAG ONE (17:03)
[2020-01-24] MEDS ORDERED: Piperacillin/Tazobactam 4.5 GM VIAL ONE (17:03)
[2020-01-24] MEDS ORDERED: Acetaminophen 500 MG TAB ONE (17:03)
[2020-01-24] MEDS ORDERED: Acetaminophen 650 MG Suppository ONE (17:15)
[2020-01-24 17:31] LABS: Hemoglobin 10.4 g/dL (14.0-18.0); Mean Corpuscular HGB CONC 33.8 g/dL (32.0-36.0); Mean Corpuscular Hemoglobin 32.3 pg (27.0-31.0); Mean Corpuscular Volume 95.6 fL (78.0-98.0); Mean Platelet Volume 8.1 fL (7.4-10.4); Platelet Count 129 thou/uL (130-400); Red Blood Cell (RBC) Count 3.23 mill/uL (4.70-6.10); White Blood Cell (WBC) Count 1.6 thou/uL (4.8-10.8)
[2020-01-24 17:43] LABS: ALT (SGPT) 22 U/L (8-55); AST (SGOT) 28 U/L (5-34); Albumin 3.1 g/dL (3.4-4.8); Alkaline Phosphatase 80 U/L (40-110); Anion Gap 13 mmol/L (10-20); BUN (Urea Nitrogen) 24 mg/dL (8.4-25.7); Bilirubin, Total 0.7 mg/dL (0.2-1.2); Calc. Creatinine Clearance 0 mL/min (70-130); Carbon Dioxide 26 mmol/L (23-31); Chloride 95 mmol/L (98-107); Estimated GFR-MDRD Greater than 90; Globulin 3.7 g/dL (2.4-3.5); Glucose 106 mg/dL (80-115); Potassium 3.5 mmol/L (3.5-5.1); Protein, Total 6.8 g/dL (5.8-8.1); Sodium 130 mmol/L (136-145)
[2020-01-24 17:44] LABS: Band 1 % (5-11); Lymphocytes 47 % (21-51); MDiff Complete? YES; Monocytes 41 % (0-10); Neutrophil 5 % (42-75); Platelet Morphology Comment Appears Decreased; Polychromasia SLIGHT = 2-3 cells (100X) (0-2/hpf); Reactive Lymphocytes 4 % (0-10)
--- NOTE | 2020-01-24 17:49 | RAD ---
PORTABLE CHEST: 01/24/20 PROVIDED CLINICAL HISTORY: Fever. FINDINGS: Comparison 12/25/19. Cardiac and mediastinal silhouette is unchanged in appearance. Vascular calcifications again seen in volving the aortic arch. Left sided implanted port is again seem in similar position. No focal consol idation, pleural fluid or pneumothorax apparent. IMPRESSION: No evidence for an acute cardiopulmonary process. POS: KRIS
[2020-01-24 17:52] LABS: Bacteria/HPF None Seen HPF (None Seen); Bilirubin Negative (Negative); Clarity Clear (Clear); Glucose, Urine (Dipstick) Normal (Negative); Leukocyte Negative Leu/uL (Negative); Nitrite Negative (Negative); Protein, Urine (Dipstick) 70 mg/dL (Neg-Trace); Squamous Epithelial None Seen HPF (0-3); Urobilinogen Normal mg/dL (Less than 2)
[2020-01-24 17:55] LABS: Blood, Urine Trace (Negative)
[2020-01-24] MEDS ORDERED: Acetaminophen 325 MG TAB PO PRN (18:52)
[2020-01-24] MEDS ORDERED: Ondansetron ODT 4 MG TAB PO PRN (18:52)
--- NOTE | 2020-01-24 20:04 | HP ---
CHIEF COMPLAINT: Fever, dizziness. HISTORY OF PRESENT ILLNESS: The patient is a 64-year-old male with hypopharyngeal cancer, who was admitted here in December. At that time, the patient had received his first course of chemotherapy, had neutropenic fever, had E. coli bacteremia. Subsequently recovered his counts, became afebrile and was discharged to home. Subsequently, the patient has had another round of treatment and is developing fever again today. He had some vomiting en route, but denies any other vomiting. Denies any other symptoms. No cough. No chest pain. No sore throat. No other signs of infection. The patient reports that he did not receive a Neupogen type injection following his second cycle of chemotherapy. REVIEW OF SYSTEMS: He has been getting feeds through his PEG tube. He has had normal sleep, normal bowel habits, and normal voiding. All other systems reviewed; all pertinent positives and negatives noted in the history of present illness. PAST MEDICAL HISTORY: As noted, the hypopharyngeal cancer, followed by Dr. Redding; some history of hypertension previously, but none presently. PAST SURGICAL HISTORY: Port placement, PEG tube placement. SOCIAL HISTORY: Former smoker, apparently quit in 2006, was a heavy drinker. Denies any recreational drug use. Full code. is his surrogate decision maker. FAMILY HISTORY: He was adopted, unknown. ALLERGIES: NONE. MEDICATIONS: Included nicotine patch. PHYSICAL EXAMINATION: VITAL SIGNS: Initially, BP 143/80, pulse 133, respirations 25, temperature 103.1, O2 saturation 98% on room air. Latest vitals, BP 105/57, pulse 115, respirations 20, temperature is 100.7, O2 saturation 97% on room air. GENERAL APPEARANCE: Age-appropriate male, he is in no distress. He is awake, alert, oriented, pleasant, cooperative. HEENT: Pupils are reactive. NECK: Supple and symmetric. HEART: Regular without murmur. LUNGS: Clear bilaterally without significant wheezes or rales. ABDOMEN: Soft, nontender, and nondistended. Positive bowel sounds. There is a PEG tube in place that appears healthy. EXTREMITIES: No cyanosis, clubbing, or edema. SKIN: Has no evidence of rash or discoloration or cellulitic changes. PSYCHIATRIC: Normal affect and behavior. NEUROLOGIC: No focal deficits. LABORATORY DATA: White count 1.6, hemoglobin 10.4, platelets 129. Has 5% neutrophils, 1% bands, 47% lymphocytes, 41% monocytes. Sodium 130, potassium 3.5, chloride 95, CO2 is 26, BUN 24, creatinine 0.7. Lactic acid 2.0, calcium 8.0, AST 28, ALT 22, alkaline phosphatase 180, albumin 3.1. Urinalysis shows 4 to 6 white cells, 7 to 10 red cells. Flu screen negative. Chest x-ray negative. IMPRESSION AND PLAN: 1. Neutropenic fever. The patient has had appropriate cultures obtained. We will start him on vancomycin and Zosyn. His previous bacteremia with E. coli showed sensitivities to Zosyn, so that should be covered as well. He has no current evident source of infection. He does have a COVID test pending. 2. Hypopharyngeal cancer. The patient has had 2 rounds of chemotherapy. Says he did not get a granulocyte stimulating factor injection following this round of chemotherapy. We will consult with Oncology to determine if that was deliberate. 3. Hyponatremia. The patient has some chronic hyponatremia and his levels are exactly where they were when he was discharged in December. No intervention indicated. 4. History of tobacco abuse. Patient continues with a nicotine patch. I will continue with that as well. Job ID: [id number]
[2020-01-24] MEDS ORDERED: Nicotine 14 MG PATCH TD SCH (21:00)
[2020-01-24 21:20] VITALS: BMI 21.0
[2020-01-24] MEDS: Famotidine/PF 20 mg/2ml Vial SLOW IVP SCH (21:59)
[2020-01-24] MEDS: Nicotine 7 MG PATCH TD SCH ×2 (21:59→22:39)
[2020-01-24] MEDS: Piperacillin/Tazobactam 3.375 GM in Sodium Chloride 0.9% 100 ML IVPB SCH (23:06)
[2020-01-25] MEDS: Piperacillin/Tazobactam 3.375 GM in Sodium Chloride 0.9% 100 ML IVPB SCH ×2 (05:06→10:54)
[2020-01-25] MEDS: Vancomycin 1 GM in Premix Bag 1 BAG IVPB SCH ×2 (05:42→17:21)
[2020-01-25 06:49] LABS: Anion Gap 9 mmol/L (10-20); BUN (Urea Nitrogen) 21 mg/dL (8.4-25.7); Calc. Creatinine Clearance 103 mL/min (70-130); Calcium 6.8 mg/dL (7.8-10.44); Carbon Dioxide 23 mmol/L (23-31); Chloride 100 mmol/L (98-107); Estimated GFR-MDRD Greater than 90; Glucose 98 mg/dL (80-115); Potassium 3.3 mmol/L (3.5-5.1); Sodium 129 mmol/L (136-145)
[2020-01-25 08:04] LABS: Band 3 % (5-11); Hemoglobin 8.5 g/dL (14.0-18.0); Lymphocytes 51 % (21-51); MDiff Complete? YES; Mean Corpuscular HGB CONC 34.1 g/dL (32.0-36.0); Mean Corpuscular Hemoglobin 32.9 pg (27.0-31.0); Mean Corpuscular Volume 96.7 fL (78.0-98.0); Mean Platelet Volume 8.1 fL (7.4-10.4); Monocytes 41 % (0-10); Neutrophil 4 % (42-75); Platelet Count 99 thou/uL (130-400); Platelet Morphology Comment Appears Decreased; RBC Distribution Width 12.2 % (11.5-14.5); RBC Morphology Normal; Reactive Lymphocytes 1 % (0-10); Red Blood Cell (RBC) Count 2.56 mill/uL (4.70-6.10); White Blood Cell (WBC) Count 2.1 thou/uL (4.8-10.8)
[2020-01-25] MEDS: Famotidine/PF 20 mg/2ml Vial SLOW IVP SCH ×2 (08:30→21:01)
[2020-01-25] MEDS: Enoxaparin Sodium 40 MG/0.4 ML SYRINGE SC SCH (08:30)
[2020-01-25] MEDS: Nicotine 7 MG PATCH TD SCH (08:33)
[2020-01-25] MEDS: TBO-Filgrastim 300 MCG/0.5 ML VIAL SC SCH (08:49)
[2020-01-25] MEDS ORDERED: Vancomycin HCl 1.5 GM in Sodium Chloride 0.9% 250 ML 300 ML IVPB SCH (09:00)
--- NOTE | 2020-01-25 12:49 | CON ---
DATE OF CONSULTATION: REASON FOR CONSULTATION: Squamous cell carcinoma of the hypopharynx. HISTORY OF PRESENT ILLNESS: Mr. Dumont is a 64-year-old gentleman, who was diagnosed with squamous cell carcinoma of the hypopharynx in November of 2019. Initially, he was at [facility] in [place], where he had his biopsy, MediPort, and PEG tube placed. He was transferred to [facility] closer to home and received induction chemotherapy with Taxotere, cisplatin, and infusional 5-FU, was completed on December 07. He was doing well until 10 days after cycle one, where he was admitted for bacteremia and sepsis. He completed antibiotics and his mass was smaller and he was swallowing better, but still using the feeding tube. He was seen by Dr. Moreau in the outpatient setting. He needed teeth pulled and was seen by Dr. Riojas. He has had his teeth pulled and continues to heal. Oral surgeon stated he could not have radiation for 2 weeks. Therefore, he received cycle two of chemotherapy because of his admission for sepsis. He was dose reduced and infusional 5-FU was not given. Cycle two was given on January 14. He unfortunately did not receive Neulasta support after treatment. He presented to the emergency room yesterday with fever and emesis. On arrival, his white count was 1.6. He had no cough or chest pain. He was admitted for further work out. He has been tested for COVID, which is currently pending. Assessment was done, review of chart and visualization of the patient through protective glass door. PAST MEDICAL HISTORY: 1. 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 2. Hypertension. PAST SURGICAL HISTORY: 1. MediPort placement. 2. PEG tube placement. ALLERGIES: NO KNOWN DRUG ALLERGIES. HOME MEDICATIONS: 1. . 2. NicoDerm patch. 3. Nausea medicine p.r.n. FAMILY HISTORY: Unknown. SOCIAL HISTORY: History of heavy alcohol and tobacco use. , lives with his spouse, 3 children. REVIEW OF SYSTEMS: Deferred. PHYSICAL EXAMINATION: VITAL SIGNS: Temperature is 98.2, pulse is 88, respiratory rate 16, blood pressure is 94/53. He is 98% on room air. GENERAL: Well-developed, well-nourished male, in no acute distress. RESPIRATORY: unlabored. ABDOMEN: He is currently getting bolus tube feeds. NEUROLOGIC: Nonfocal. PERTINENT LABORATORY DATA AND X-RAYS: Current WBCs are 2.1, hemoglobin 8.5, hematocrit 24.8, platelet count is 99,000. He has 4 neutrophils, 3 bands, 51 lymphocytes, 41 monocytes. Sodium is 129, potassium 3.3, chloride 100, CO2 is 23, BUN is 21, creatinine 0.61, calcium 6.8, lactic acid 2, bilirubin 0.7, AST is 28 , ALT is 22, alkaline phosphatase is 80. Serum total protein 6.8, albumin 3.1, globulin 3.7. Chest x-ray showed no evidence of acute process. ASSESSMENT: 1. Squamous cell carcinoma of the oropharynx, status post cycle two of chemotherapy. 2. Neutropenic fever. 3. COVID rule out. DISCUSSION: Case has been discussed with Dr. Redding. He unfortunately did not receive Neulasta support after cycle two. We will begin Neupogen until his ANC is greater than 1. He is on empiric antibiotics and is currently awaits COVID-19 test results. We will continue tube feeds and pain medications. We will follow along with his hospital course. Thank you for the consult. Job ID: [id number] [facility]ITAL[facility]
--- NOTE | 2020-01-25 14:54 | EKG ---
Test Reason : SEPSIS ALERT Blood Pressure : / mmHG Vent. Rate : 135 BPM Atrial Rate : 135 BPM P-R Int : 130 ms QRS Dur : 106 ms QT Int : 312 ms P-R-T Axes : 024 058 005 degrees QTc Int : 468 ms Sinus tachycardia with Premature atrial complexes Incomplete right bundle branch block Septal infarct , age undetermined Abnormal ECG Confirmed by GOLDY MEDNIA, HAMILTON Doyle ([id number]), marketing editor DAYANA ZHANG ([id number]) on 01/25/2020 2:54:21 PM Referred By: Confirmed By:HAMILTON WINSLOW MD
[2020-01-25] MEDS: Sodium Chloride 0.9% 1,000 ML IV SCH (17:19)
[2020-01-25] MEDS: Cefepime 2 GM in Sodium Chloride 0.9% 100 ML IVPB SCH (17:20)
--- NOTE | 2020-01-25 18:43 | PDOC.HOSPP ---
- Subjective Encounter Date: 01/25/20 Subjective: Doing well. Feels ok. No symptoms. - Objective Vital Signs & Weight: Vital Signs (12 hours) Temp Pulse Resp BP BP Pulse Ox 01/25/20 16:30 98.5 F 109 H 18 148/66 H 98 01/25/20 11:36 98.2 F 88 16 94/53 L 98 01/25/20 08:00 98.1 F 104 H 18 94/53 L Weight Admit Weight 134 lb 7.712 oz Weight 134 lb 7.712 oz I&O: 01/24/20 01/25/20 01/26/20 06:59 06:59 06:59 Intake Total 1400 1630 Output Total 400 850 Balance 1000 780 Result Diagrams: 01/25/20 05:56 01/25/20 05:56 Hospitalist ROS - Medication Medications: Active Medications Generic Name Dose Route Start Last Admin Trade Name Freq PRN Reason Stop Dose Admin Enoxaparin Sodium 40 mg 01/25/20 09:00 01/25/20 08:30 Lovenox SC 40 mg 0900 FLORINDA Administration Famotidine 20 mg 01/24/20 21:00 01/25/20 08:30 Pepcid SLOW IVP 20 mg Q12HR FLORINDA Administration Vancomycin HCl 1 gm/ Device 200 mls @ 200 mls/hr 01/25/20 06:00 01/25/20 17: 21 IVPB 200 mls 0600,1800 FLORINDA Administration Sodium Chloride 1,000 mls @ 75 mls/hr 01/25/20 15:15 01/25/20 17:19 Normal Saline 0.9% IV 1,000 mls .[id number] FLORINDA Administration Cefepime HCl 2 gm/ Sodium 100 mls @ 200 mls/hr 01/25/20 17:00 01/25/20 17:20 Chloride IVPB 100 mls 0500,1700 FLORINDA Administration Nicotine 7 mg 01/25/20 09:00 01/25/20 08:33 Nicoderm Patch TD 7 mg Q24HR FLORINDA Administration Tbo-Filgrastim 300 mcg 01/25/20 09:00 01/25/20 08:49 Granix SC 300 mcg 0900 FLORINDA Administration - Exam General Appearance: NAD, awake alert Heart: RRR, no murmur, no gallops, no rubs, normal peripheral pulses Respiratory: CTAB, no wheezes, no rales, no ronchi, normal chest expansion, no tachypnea, normal percussion Gastrointestinal: soft, non-tender, non-distended, normal bowel sounds, no palpable masses, no hepatomegaly, no splenomegaly, no bruit Gastrointestinal - other findings: PEG Extremities: no cyanosis, no clubbing, no edema Skin: normal turgor Neurological: no focal deficits Musculoskeletal: normal tone Psychiatric: normal affect, normal behavior, A&O x 3 Hosp A/P (1) Neutropenic fever Code(s): D70.9 - NEUTROPENIA, UNSPECIFIED; R50.81 - FEVER PRESENTING WITH CONDITIONS CLASSIFIED ELSEWHERE Status: Resolved (2) Hypopharyngeal cancer Code(s): C13.9 - MALIGNANT NEOPLASM OF HYPOPHARYNX, UNSPECIFIED Status: Chronic (3) Dysphagia Code(s): R13.10 - DYSPHAGIA, UNSPECIFIED Status: Acute Qualifiers: (4) Hyponatremia Code(s): E87.1 - HYPO-OSMOLALITY AND HYPONATREMIA Status: Acute (5) Essential hypertension Code(s): I10 - ESSENTIAL (PRIMARY) HYPERTENSION Status: Chronic (6) History of heavy alcohol consumption Code(s): Z87.898 - PERSONAL HISTORY OF OTHER SPECIFIED CONDITIONS Status: Chronic (7) PEG (percutaneous endoscopic gastrostomy) status Code(s): Z93.1 - GASTROSTOMY STATUS Status: Acute - Plan Admitted with neutropenic fever. Has not had fever since admission. Covering with broad spectrum abx. Will change regimen to frequency of nurse entering the room and using PPE. COVID pending, but very unlikely at this point. Did not receive the GCSF after his last chemo. Discussed with Dr. Redding today. Ordered for today. If covid negative, cultures negative and he remains afebrile for 48 hours, he should likely be DC'd to home.
[2020-01-26] MEDS: Sodium Chloride 0.9% 1,000 ML IV SCH (05:25)
[2020-01-26] MEDS: Vancomycin 1 GM in Premix Bag 1 BAG IVPB SCH (05:26)
[2020-01-26] MEDS: Cefepime 2 GM in Sodium Chloride 0.9% 100 ML IVPB SCH (05:26)
[2020-01-26 06:14] LABS: Hemoglobin 8.7 g/dL (14.0-18.0); Mean Corpuscular HGB CONC 33.7 g/dL (32.0-36.0); Mean Corpuscular Hemoglobin 32.7 pg (27.0-31.0); Mean Corpuscular Volume 97.2 fL (78.0-98.0); RBC Distribution Width 12.3 % (11.5-14.5); Red Blood Cell (RBC) Count 2.67 mill/uL (4.70-6.10)
[2020-01-26 06:29] LABS: Vancomycin, Trough 12.4 ug/mL
[2020-01-26 06:45] LABS: Band 12 % (5-11); Lymphocytes 33 % (21-51); MDiff Complete? YES; Mean Platelet Volume 8.8 fL (7.4-10.4); Metamyelocyte 2 % (0-0); Monocytes 36 % (0-10); Myelocyte 1 % (0-0); Neutrophil 16 % (42-75); Platelet Count 107 thou/uL (130-400); Platelet Morphology Comment Appears Decreased; White Blood Cell (WBC) Count 3.6 thou/uL (4.8-10.8)
[2020-01-26 07:28] VITALS: TEMP 98.4
[2020-01-26] MEDS: Famotidine/PF 20 mg/2ml Vial SLOW IVP SCH (09:05)
[2020-01-26] MEDS: Enoxaparin Sodium 40 MG/0.4 ML SYRINGE SC SCH (09:05)
[2020-01-26] MEDS: TBO-Filgrastim 300 MCG/0.5 ML VIAL SC SCH (09:06)
[2020-01-26] MEDS ORDERED: TBO-Filgrastim 300 MCG/0.5 ML VIAL SC SCH (09:45)
[2020-01-26] MEDS: Nicotine 7 MG PATCH TD SCH (10:50)
[2020-01-26 13:25] VITALS: BP 120/74
[2020-01-26] MEDS ORDERED: Vancomycin HCl 1.25 GM in Sodium Chloride 0.9% 250 ML 250 ML IVPB SCH (18:00)
--- NOTE | 2020-01-26 21:39 | DIS ---
DATE OF ADMISSION: 01/24/2020 DATE OF DISCHARGE: 01/26/2020 DISCHARGE DIAGNOSES: 1. Neutropenic fever. 2. Isolated episode of vomiting. 3. Hypopharyngeal cancer. 4. Hyponatremia, chronic. 5. Dysphagia, chronic. 6. History of hypertension. 7. History of alcohol consumption. 8. PEG tube in place. HISTORY OF PRESENT ILLNESS: This patient is a 64-year-old male with a history of hypopharyngeal cancer, who initiated chemotherapy, subsequently had a neutropenic fever, was admitted here. He grew E coli in his blood, was treated appropriately, discharged home, and he was no longer neutropenic. Subsequently, he has had a second round of chemotherapy and through some miscommunication, did not receive his Neulasta. He subsequently had fever and on the way to the hospital he had one episode of vomiting, but that quickly resolved. The patient had no other underlying symptoms. HOSPITAL COURSE: The patient was admitted to the hospital for neutropenic fever. Flu screen was negative. Urinalysis was negative. He had no other specific signs or sources of infection noted. Chest x-ray was clear. He was started on broad-spectrum antibiotics. He had a COVID screening test obtained in the emergency department. He had a Granix injection ordered daily by Oncology. His white count increased from 1.6 to 2.1 to 3.6, and his ANC was greater than 1000. He remained afebrile throughout his stay. He had no further symptoms after the time of admission and in consultation with Oncology, he was felt to be stable for discharge home and the patient was certainly in agreement with that. PHYSICAL EXAMINATION: VITAL SIGNS: On the day of discharge, temperature 98.4, pulse 100, respirations 20, O2 saturation 97% on room air, BP 120/74. GENERAL: He is awake, alert, pleasant, cooperative. HEART: Regular rate and rhythm without murmurs, gallops, or rubs. LUNGS: Clear bilaterally. ABDOMEN: Soft, nontender, and nondistended. EXTREMITIES: No cyanosis, clubbing, or edema. DISPOSITION: The patient is discharged to home. He is to continue with his usual Jevity feeds. ACTIVITY: As tolerated. He will be on levofloxacin 500 mg daily, Nicoderm CQ patch. He is to follow up with Oncology with Dr. Redding and he can return to the hospital at anytime should he have the need to do so. He is encouraged to go Dr. Redding's office on Wednesday if he is not heard back from us on his COVID screening test, although it was clear that at this point him being neutropenic and afebrile for 48 hours, it is very unlikely he actually has this at this time. TIME SPENT: Total time in discharge activities greater than 30 minutes. Job ID: [id number] MTDD
--- NOTE | 2020-01-27 11:26 | PDOC.EVN ---
Event Note - Event Note Event Note: Notified patient via a call to his that his Covid test was negative.
== END 2020-01-26 14:06 | disposition home or self-care (01) | DRG 809 ==
LOC: ERS 16:48 → T4-A 18:37
PROVIDERS: ADMIT Internal Medicine; ATTEND Internal Medicine
DX: D70.9 Neutropenia, unspecified (principal); E87.1 Hypo-osmolality and hyponatremia; R50.81 Fever presenting with conditions classified elsewhere; R11.10 Vomiting, unspecified; C13.9 Malignant neoplasm of hypopharynx, unspecified; R13.10 Dysphagia, unspecified; I10 Essential (primary) hypertension; Z93.1 Gastrostomy status; Z92.21 Personal history of antineoplastic chemotherapy; Z87.891 Personal history of nicotine dependence; Z87.898 Personal history of other specified conditions; Z20.828 Contact with and (suspected) exposure to other viral communicable diseases
CPT/HCPCS: 36415; 71045; 80048; 80053; 80202; 81003; 81015; 83605; 85025; 87040; 87086; 87635; 87804; 93005; 96360; 96361; 96365; 96367; J0692; J1447; J1650; J2543; J3370; J3490; S0028; U0003

== ENCOUNTER 2020-02-23 08:24 | Day surgery (SDC) | payer MEDICARE, OTHER ==
[2020-02-23] MEDS ORDERED: Sodium Chloride 0.9% 20 ML ONE (08:28)
[2020-02-23] MEDS ORDERED: diphenhydrAMINE 25 MG CAP PO SCH (09:45)
[2020-02-23] MEDS ORDERED: Acetaminophen 500 MG TAB PO SCH (09:45)
[2020-02-23 12:05] VITALS: BP 126/66; TEMP 98
== END 2020-02-23 12:23 | disposition home or self-care (01) ==
LOC: ONC/OP 08:24
PROVIDERS: ATTEND Internal Medicine Hematology & Oncology
PROC: 30233N1 Transfusion of Nonautologous Red Blood Cells into Peripheral Vein, Percutaneous Approach (ICD-10-PCS; principal; 2020-02-23)
DX: D64.9 Anemia, unspecified (principal); D69.6 Thrombocytopenia, unspecified
CPT/HCPCS: 36430; 86850; 86900; 86901; J1642; P9016; Q0163

== ENCOUNTER 2020-03-12 11:08 | Day surgery (SDC) | payer MEDICARE, OTHER ==
[2020-03-12] MEDS ORDERED: Sodium Chloride 0.9% 20 ML ONE (11:43)
[2020-03-12] MEDS ORDERED: Acetaminophen 500 MG TAB PO SCH (11:45)
[2020-03-12] MEDS ORDERED: diphenhydrAMINE 25 MG CAP PO SCH (11:45)
[2020-03-12 15:38] VITALS: BP 142/58; TEMP 98.4
[2020-03-12 15:44] LABS: Anisocytosis SLIGHT = 6-15 cells (100X) (0-5/hpf); Band 25 % (5-11); Eosinophils 1 % (0-10); Hemoglobin 7.8 g/dL (14.0-18.0); Lymphocytes 19 % (21-51); MDiff Complete? YES; Macrocytosis SLIGHT = 6-15 cells (100X) (0-5/hpf); Mean Corpuscular HGB CONC 33.9 g/dL (32.0-36.0); Mean Corpuscular Hemoglobin 33.4 pg (27.0-31.0); Mean Corpuscular Volume 98.6 fL (78.0-98.0); Mean Platelet Volume 7.3 fL (7.4-10.4); Monocytes 36 % (0-10); Neutrophil 15 % (42-75); Platelet Count 138 thou/uL (130-400); Platelet Morphology Comment Appears Adequate; Polychromasia SLIGHT = 2-3 cells (100X) (0-2/hpf); RBC Distribution Width 17.6 % (11.5-14.5); Reactive Lymphocytes 4 % (0-10); Red Blood Cell (RBC) Count 2.35 mill/uL (4.70-6.10); White Blood Cell (WBC) Count 2.3 thou/uL (4.8-10.8)
== END 2020-03-12 15:38 | disposition home or self-care (01) ==
LOC: ONC/OP 11:08
PROVIDERS: ATTEND Internal Medicine Hematology & Oncology
PROC: 30233N1 Transfusion of Nonautologous Red Blood Cells into Peripheral Vein, Percutaneous Approach (ICD-10-PCS; principal; 2020-03-12)
DX: D64.9 Anemia, unspecified (principal); D69.6 Thrombocytopenia, unspecified
CPT/HCPCS: 36430; 77386; 85025; 86850; 86900; 86901; J1642; P9016; Q0163

== ENCOUNTER 2020-04-18 09:39 | Inpatient (IN) | payer MEDICARE, OTHER ==
[2020-04-18] MEDS ORDERED: Acetaminophen 500 MG TAB ONE (10:14)
[2020-04-18] MEDS ORDERED: Acetaminophen 650 MG Suppository ONE (10:31)
[2020-04-18 11:01] LABS: Mean Corpuscular HGB CONC 33.5 g/dL (32.0-36.0); Mean Corpuscular Hemoglobin 37.2 pg (27.0-31.0); Mean Platelet Volume 8.2 fL (7.4-10.4); Platelet Count 127 thou/uL (130-400); RBC Distribution Width 20.9 % (11.5-14.5); Red Blood Cell (RBC) Count 1.62 mill/uL (4.70-6.10); White Blood Cell (WBC) Count 3.8 thou/uL (4.8-10.8)
[2020-04-18] MEDS ORDERED: Bacitracin 1 PK ONE (11:07)
[2020-04-18 11:23] LABS: ALT (SGPT) 9 U/L (8-55); AST (SGOT) 17 U/L (5-34); Albumin 2.9 g/dL (3.4-4.8); Alkaline Phosphatase 74 U/L (40-110); Anion Gap 10 mmol/L (10-20); BUN (Urea Nitrogen) 24 mg/dL (8.4-25.7); Bilirubin, Total 0.5 mg/dL (0.2-1.2); Calc. Creatinine Clearance 0 mL/min (70-130); Calcium 8.5 mg/dL (7.8-10.44); Carbon Dioxide 30 mmol/L (23-31); Chloride 95 mmol/L (98-107); Estimated GFR-MDRD Greater than 90; Globulin 4.1 g/dL (2.4-3.5); Glucose 98 mg/dL (80-115); Lipase 8 U/L (8-78); Potassium 4.1 mmol/L (3.5-5.1); Sodium 131 mmol/L (136-145)
[2020-04-18 11:24] LABS: Anisocytosis SLIGHT = 6-15 cells (100X) (0-5/hpf); Band 18 % (5-11); Lymphocytes 12 % (21-51); MDiff Complete? YES; Macrocytosis SLIGHT = 6-15 cells (100X) (0-5/hpf); Monocytes 23 % (0-10); Neutrophil 47 % (42-75); Platelet Morphology Comment Appears Decreased; Polychromasia SLIGHT = 2-3 cells (100X) (0-2/hpf)
[2020-04-18] MEDS ORDERED: Iopamidol-370 76% 500 ML 1 ML ONE (11:28)
[2020-04-18] MEDS ORDERED: Vancomycin 1 GM/200 ML BAG ONE (11:34)
--- NOTE | 2020-04-18 12:09 | CT ---
CT Abdomen Pelvis W Con HISTORY: 64-year-old male with laryngeal cancer. Patient had a PEG tube placed in November 2019 which fell out yesterday and was replaced by the ER physician today. There is redness at the site of the T-tube with fever. Concern for abscess. COMPARISON: None. FINDINGS: The lung bases are unremarkable. A PEG tube is seen in the stomach. There is soft tissue swelling in the anterior abdominal wall of the left upper quadrant along the course of the tube. No definite loculated fluid collection is seen to suggest abscess formation. No free air or free fluid is seen in the abdomen or pelvis. A 6 mm left para-aortic lymph node is see n. No calcified gallstones are noted. The liver, spleen, pancreas, adrenal glands and kidneys appear normal. There are vascular calcifications without evidence of aneurysmal dilatation of the abdominal aorta. T here are degenerative changes in the spine. There is an old compression fracture of L1. There is grade 1 anterolisthesis of L5 over S1. Bilateral pars articularis defects are noted at L5. No osteoly tic or osteoblastic lesions are seen. IMPRESSION: 1. No evidence of metastatic disease. 2. PEG tube in place without definite evidence of a drainable abscess. Discussed over the telephone with ER physician Dr. Beatriz Mccarty at 12:01 PM
--- NOTE | 2020-04-18 12:43 | RAD ---
PORTABLE CHEST: Date: 04/18/2020 HISTORY: Fever. COMPARISON: 01/24/2020. FINDINGS: Lungs appear clear. No evidence of focal infiltrate or vascular congestion. Heart and mediastinum unr emarkable. The MediPort catheter appears adequately positioned and is unchanged. IMPRESSION: No acute process or interval change. POS: [facility]
[2020-04-18 13:12] LABS: Bilirubin Negative (Negative); Blood, Urine Negative (Negative); Clarity Clear (Clear); Glucose, Urine (Dipstick) Normal (Negative); Ketone, Urine Negative (Negative); Leukocyte Negative Leu/uL (Negative); Nitrite Negative (Negative); Protein, Urine (Dipstick) Negative (Neg-Trace); Specific Gravity, Urine 1.029 (1.002-1.036); Urobilinogen Normal mg/dL (Less than 2)
[2020-04-18] MEDS ORDERED: Ondansetron ODT 4 MG TAB PO PRN (14:54)
--- NOTE | 2020-04-18 20:16 | HP ---
PRIMARY CARE PHYSICIAN: Adia Redding MD CHIEF COMPLAINT: "My PEG tube fell out and I had fever." HISTORY OF PRESENT ILLNESS: The patient is an ill-appearing 64-year-old male with past medical history significant for hypopharyngeal cancer. He presents to the ER today with fever and after his PEG tube had become dislodged. The patient's temperature upon arrival was 100.3 orally. Fever started yesterday per the patient. He has recently finished his treatment for his throat cancer which included over 30 chemo and radiation treatments since November of this year and he finished in March. He does state that he had a cough with production of green sputum. This cough has been going on since the diagnosis of the cancer so is not new for him. He denies any ill contacts right now. He does have some concerns of halitosis currently. When he was first diagnosed with cancer, back in November, that was one of the first signs, and during the chemo and radiation, it subsided, and now is back. Also, the patient states this morning he bent over to put his shirt on and his PEG tube fell out. He denies any drainage from the site prior or after the incident. There is some redness currently directly around where the PEG tube site is. Patient was found to be anemic once in the ER, denies any acute blood loss or hematochezia. Denies shortness of breath, chest pain, light headedness, or dizziness. Today in the ER, labs included blood work, chest x-ray, and abdomen CT. PAST MEDICAL HISTORY: Hypopharyngeal cancer, chemo and radiation November to March 2020. PAST SURGICAL HISTORY: MediPort placement. ALLERGIES: NO KNOWN DRUG ALLERGIES. MEDICATIONS: No home medications. SOCIAL HISTORY: The patient lives at home with his . He is a former tobacco user. Denies any alcohol or illicit drugs. FAMILY HISTORY: Negative for any pertinent history. REVIEW OF SYSTEMS: He does take feeds through his PEG tube. Normal sleep, normal bowel. Normal voiding. All of the systems were reviewed, and all pertinent positives and negatives noted in the history of present illness. PHYSICAL EXAMINATION: VITAL SIGNS: Temperature 98.2, respiratory rate 18, pulse 99, and blood pressure 136/65. GENERAL: In no distress. Awake, alert, oriented, cooperative. HEENT: Pupils are reactive. Extraocular muscles intact. NECK: Supple, symmetric. No lymphadenopathy. HEART: Regular rate and rhythm. No murmurs, no gallops. LUNGS: Clear to auscultation bilaterally. Regular chest expansion. ABDOMEN: Soft, nontender, nondistended. Positive bowel sounds. PEG tube in place with approximately 1 inch erythematous area on either side of the site. No drainage noted. EXTREMITIES: No cyanosis, clubbing, or edema. SKIN: No evidence of rash or discoloration. PSYCH: Normal affect and behavior. NEUROLOGIC: No focal deficits. LABORATORY DATA: White blood cells 3.8, hemoglobin 6, hematocrit 18, and platelets 127. Chemistry: Sodium 131, potassium 4.1, BUN 24, creatinine 0.67, GFR greater than 90, glucose 98, lactic acid 1.1. Albumin 2.9. Urine does not show any acute urinary tract infection. Chest x-ray, no acute process or interval change. Chest x-ray, MediPort catheter appeared adequately positioned and is unchanged. Abdomen and pelvis CT shows no evidence of metastatic disease. PEG tube in place without definite evidence of drainable abscess. IMPRESSION AND PLAN: 1. Possible chemo induced anemia. The patient has received 1 unit of blood. We will recheck hemoglobin and hematocrit in the morning. We will monitor the patient's vitals overnight and monitor for any reaction to the blood administration. 2. Cellulitis at PEG tube site. We will continue the patient on IV antibiotics and monitor for any other signs of infection. PEG tube appears to be back in place appropriately, so we will restart his tube feedings on the same regimen that he does at home. 3. Halitosis. This was one of the first signs of his cancer back in November, and it dissipated during treatment. He and his are now concerned about its recurrence. Oncology to be consulted in the morning. 4. PEG tube feedings. We will restart PEG tube feedings such as he takes at home. We will also have speech therapy come and evaluate him. He has been doing speech therapy treatment as outpatient and we would like to follow him while he is here in the hospital. The patient wishes to be a full code. Decision maker is his . The patient has been discussed with Dr. Rico. Job ID: [id number] [facility]
[2020-04-18] MEDS: Vancomycin 1 GM in Premix Bag 1 BAG IVPB SCH (23:42)
[2020-04-19 05:30] LABS: Anion Gap 10 mmol/L (10-20); BUN (Urea Nitrogen) 15 mg/dL (8.4-25.7); Calc. Creatinine Clearance 106 mL/min (70-130); Calcium 8.2 mg/dL (7.8-10.44); Carbon Dioxide 27 mmol/L (23-31); Chloride 101 mmol/L (98-107); Estimated GFR-MDRD Greater than 90; Glucose 97 mg/dL (80-115); Potassium 4.1 mmol/L (3.5-5.1); Sodium 134 mmol/L (136-145)
[2020-04-19 06:35] LABS: Anisocytosis MODERATE=16-30 cells (100X) (0-5/hpf); Band 17 % (5-11); Eosinophils 5 % (0-10); Hemoglobin 6.6 g/dL (14.0-18.0); Lymphocytes 18 % (21-51); MDiff Complete? YES; Mean Corpuscular HGB CONC 32.5 g/dL (32.0-36.0); Mean Corpuscular Hemoglobin 34.6 pg (27.0-31.0); Mean Platelet Volume 7.9 fL (7.4-10.4); Monocytes 20 % (0-10); Neutrophil 40 % (42-75); Platelet Count 133 thou/uL (130-400); RBC Distribution Width 21.1 % (11.5-14.5); Red Blood Cell (RBC) Count 1.91 mill/uL (4.70-6.10); White Blood Cell (WBC) Count 4.3 thou/uL (4.8-10.8)
--- NOTE | 2020-04-19 10:59 | PDOC.HOSPP ---
- Subjective Encounter Date: 04/19/20 Subjective: pt seen and examined at bedside he reports feeling somewhat better today received one unit over night currently denying any fever chill nausea or vomiting peg tube in place less tender - Objective Vital Signs & Weight: Vital Signs (12 hours) Temp Pulse Resp BP Pulse Ox 04/19/20 07:49 99.8 F H 106 H 18 135/70 97 04/19/20 03:56 98.7 F 111 H 20 135/62 96 04/18/20 23:52 100.5 F H 116 H 16 144/74 H 96 Weight Weight 149 lb 6.4 oz I&O: 04/18/20 04/19/20 04/20/20 06:59 06:59 06:59 Intake Total 350 360 Output Total 680 Balance 350 -320 Result Diagrams: 04/19/20 05:01 04/19/20 05:01 Hospitalist ROS - Medication Medications: Active Medications Generic Name Dose Route Start Last Admin Trade Name Freq PRN Reason Stop Dose Admin Vancomycin HCl 1 gm/ Device 200 mls @ 200 mls/hr 04/18/20 23:59 04/18/20 23: 42 IVPB 200 mls 1200,2359 FLORINDA Administration - Exam General Appearance: NAD, awake alert Eye: PERRL, anicteric sclera ENT: normocephalic atraumatic, no oropharyngeal lesions Neck: supple Heart: RRR, no murmur Respiratory: CTAB Gastrointestinal: soft Gastrointestinal - other findings: peg tube in place with some erythema Skin: normal turgor Neurological: cranial nerve grossly intact Musculoskeletal: normal tone Hosp A/P (1) Anemia Code(s): D64.9 - ANEMIA, UNSPECIFIED Status: Acute (2) PEG (percutaneous endoscopic gastrostomy) status Code(s): Z93.1 - GASTROSTOMY STATUS Status: Acute (3) Sepsis Code(s): A41.9 - SEPSIS, UNSPECIFIED ORGANISM Status: Acute (4) Carotid artery stenosis Code(s): I65.29 - OCCLUSION AND STENOSIS OF UNSPECIFIED CAROTID ARTERY Status : Chronic Qualifiers: Laterality: bilateral Qualified Code(s): I65.23 - Occlusion and stenosis of bilateral carotid arteries (5) Essential hypertension Code(s): I10 - ESSENTIAL (PRIMARY) HYPERTENSION Status: Chronic (6) History of heavy alcohol consumption Code(s): Z87.898 - PERSONAL HISTORY OF OTHER SPECIFIED CONDITIONS Status: Chronic (7) Hypopharyngeal cancer Code(s): C13.9 - MALIGNANT NEOPLASM OF HYPOPHARYNX, UNSPECIFIED Status: Chronic - Plan chemoinduced anemia: s/p one unit of blood this am still less than 7 will transfuse one unit moniotr and transfuse as needed for hg <7 fever and peg celluluitis : fever curve and erythema improving will cont with vanco abx follow cx and adjust as needed , restarting feeding today pt is full code is surregate moniotr electrolytes and replace as needed disposition : most likely will need 1-2 days of hospital stay
[2020-04-19 11:48] LABS: Anion Gap 10 mmol/L (10-20); BUN (Urea Nitrogen) 16 mg/dL (8.4-25.7); Calc. Creatinine Clearance 118 mL/min (70-130); Calcium 8.1 mg/dL (7.8-10.44); Carbon Dioxide 27 mmol/L (23-31); Chloride 100 mmol/L (98-107); Estimated GFR-MDRD Greater than 90; Glucose 86 mg/dL (80-115); Potassium 4.2 mmol/L (3.5-5.1); Sodium 133 mmol/L (136-145)
[2020-04-19 11:58] LABS: Anisocytosis SLIGHT = 6-15 cells (100X) (0-5/hpf); Band 27 % (5-11); Eosinophils 1 % (0-10); Hemoglobin 7.3 g/dL (14.0-18.0); Lymphocytes 22 % (21-51); MDiff Complete? YES; Macrocytosis SLIGHT = 6-15 cells (100X) (0-5/hpf); Mean Corpuscular HGB CONC 33.7 g/dL (32.0-36.0); Mean Corpuscular Hemoglobin 36.2 pg (27.0-31.0); Mean Platelet Volume 7.7 fL (7.4-10.4); Metamyelocyte 2 % (0-0); Monocytes 12 % (0-10); Neutrophil 36 % (42-75); Platelet Count 130 thou/uL (130-400); White Blood Cell (WBC) Count 4.7 thou/uL (4.8-10.8)
[2020-04-19] MEDS: Vancomycin 1 GM in Premix Bag 1 BAG IVPB SCH (12:17)
[2020-04-19 13:16] VITALS: BMI 23.3
[2020-04-19] MEDS: Acetaminophen 325 MG TAB PO PRN (18:05)
--- NOTE | 2020-04-19 20:14 | CON ---
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 As chemotherapy consisted of weekly cisplatinum. The patient was admitted through emergency room with fever and dislodgement of the PEG tube. The patient also had a foul odor about which his was very concerned about it was similar to the odor that he developed when the diagnosis of his hypopharyngeal cancer was first made. The patient was found to have cellulitis around the PEG tube entrance site and was started on vancomycin. In the hospital, his highest temperature has been 100.5. PEG tube has been repositioned and feeding has been resumed. PAST MEDICAL HISTORY: Positive for hypertension. PERSONAL, FAMILY, AND SOCIAL HISTORY: The patient lives with his spouse and has three children. 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 PHYSICAL EXAMINATION: GENERAL: The patient appears chronically ill. VITAL SIGNS: Temperature 100.5, pulse 113, respirations 16, and blood pressure is 132/68. LYMPH: No peripheral lymphadenopathy. CHEST: Clear to percussion and auscultation. HEART: S1 and S2. ABDOMEN: Soft. EXTREMITIES: Without pedal edema. LABORATORY DATA: CBC shows WBC 4700, hemoglobin 7.3, and platelet count of 130,000. His admitting hemoglobin was 6 and he has been transfused. Chemistry profile is remarkable for albumin of 2.9. Serum creatinine and calcium are normal. Blood cultures are negative so far and urine culture is also negative at 24 hours. ASSESSMENT/RECOMMENDATION: The patient is status post chemo and concurrent radiation therapy for hypopharyngeal squamous cell carcinoma. His fever most likely is from cellulitis. His current treatment should be continued. Somewhere along the line, he will need to be seen by Dr. Gamino to evaluate the response. I doubt if he had recurrence of his cancer so early after treatment. Thanks very much for asking me to participate in this patient's care. He will be followed by Oncology Service. Job ID: [id number]
[2020-04-19 23:37] LABS: Vancomycin, Trough 14.4 ug/mL
[2020-04-20] MEDS: Vancomycin 1 GM in Premix Bag 1 BAG IVPB SCH ×3 (00:49→23:00)
[2020-04-20 05:50] LABS: Anisocytosis SLIGHT = 6-15 cells (100X) (0-5/hpf); Band 23 % (5-11); Eosinophils 4 % (0-10); Hemoglobin 6.4 g/dL (14.0-18.0); Lymphocytes 12 % (21-51); MDiff Complete? YES; Macrocytosis SLIGHT = 6-15 cells (100X) (0-5/hpf); Mean Corpuscular HGB CONC 31.8 g/dL (32.0-36.0); Mean Corpuscular Hemoglobin 34.1 pg (27.0-31.0); Mean Platelet Volume 7.9 fL (7.4-10.4); Monocytes 19 % (0-10); Neutrophil 42 % (42-75); Platelet Count 134 thou/uL (130-400); Platelet Morphology Comment Appears Adequate; RBC Distribution Width 20.2 % (11.5-14.5); Red Blood Cell (RBC) Count 1.88 mill/uL (4.70-6.10); White Blood Cell (WBC) Count 3.9 thou/uL (4.8-10.8)
[2020-04-20 12:25] LABS: SARS-CoV-2 MS2 Positive; SARS-CoV-2 N Gene Negative; SARS-CoV-2 S Gene Negative; SARS-CoV-2 orf1ab Negative
[2020-04-20] MEDS ORDERED: Magnesium Sulfate 2 GM in Sodium Chloride 0.9% 100 ML IVPB SCH (13:15)
[2020-04-20] MEDS ORDERED: Magnesium 2 GM/50 ML 2 GM in Premix Bag 1 BAG IVPB SCH (13:30)
[2020-04-20] MEDS: Acetaminophen 325 MG TAB PO PRN ×2 (15:36→23:00)
--- NOTE | 2020-04-20 17:41 | PDOC.HOSPP ---
- Subjective Encounter Date: 04/20/20 Encounter Time: 13:00 Subjective: THe patient reports cough and congestion. He was witnessed to cough up thick white sputum. He has no chest pain. Patient agreeable to another unit of blood today He denies rectal bleeding Per nursing, patient spiked a fever to 103 today Patient states he is able to walk with a walker at home and his helps him at home, but would like additional help since his is at his "wit's end" - Objective Vital Signs & Weight: Vital Signs (12 hours) Temp Pulse Resp BP Pulse Ox 04/20/20 15:29 102.4 F H 122 H 18 196/88 H 95 04/20/20 12:00 98.4 F 119 H 18 126/63 94 L 04/20/20 08:00 99.5 F 107 H 16 126/60 93 L Weight Admit Weight 140 lb 9.6 oz Weight 149 lb 8 oz I&O: 04/19/20 04/20/20 04/21/20 06:59 06:59 06:59 Intake Total 350 2950 Output Total 1075 Balance 350 1875 Result Diagrams: 04/20/20 04:36 04/19/20 11:16 Hospitalist ROS - Review of Systems Constitutional: denies: fever, chills - Medication Medications: Active Medications Generic Name Dose Route Start Last Admin Trade Name Freq PRN Reason Stop Dose Admin Acetaminophen 650 mg 04/18/20 14:54 04/20/20 15:36 Tylenol PO 650 mg Q4H PRN Administration Headache/Fever/Mild Pain (1-3) Vancomycin HCl 1 gm/ Device 200 mls @ 200 mls/hr 04/18/20 23:59 04/20/20 12: 02 IVPB 200 mls 1200,2359 FLORINDA Administration - Exam General Appearance: NAD, awake alert Eye: PERRL, anicteric sclera ENT: normocephalic atraumatic, no oropharyngeal lesions Neck: no JVD Heart: RRR, no murmur, no gallops, no rubs Respiratory: CTAB, no wheezes, no ronchi Respiratory - other findings: rales improved with coughing Gastrointestinal: soft, non-tender, non-distended, normal bowel sounds Extremities: no cyanosis, no clubbing, no edema Skin: normal turgor, no lesions, no rashes Neurological: cranial nerve grossly intact, normal sensation to touch, no focal deficits, no new deficit Hosp A/P - Plan This is 64 year old male who presented with fever, and PEG tube dislodgement Fever - possibly cellulitis - blood and urine culture normal - will check chest X ray - continue IV vancomycin, add zosyn - COVID negative PEG tube cellulitis - improved - on IV antibiotics #Leukopenia #Anemia - Hb 6.5 today, transfuse 1 unit PRBC and repeat - WBC low, likely from chemotherapy. COVID negative Hypomagnesemia - mg of 1.2, given 2 grams of mag, will recheck
[2020-04-20] MEDS: Piperacillin/Tazobactam 3.375 GM in Sodium Chloride 0.9% 100 ML IVPB SCH (20:27)
[2020-04-21] MEDS: Piperacillin/Tazobactam 3.375 GM in Sodium Chloride 0.9% 100 ML IVPB SCH ×4 (00:20→21:04)
--- NOTE | 2020-04-21 01:46 | PRG ---
DATE OF SERVICE: 04/20/2020 The patient is complaining of fatigue today. He also admits of cough. His temperature at noon was 98.4, pulse 119, and respirations 18. CBC showed WBC 3900, hemoglobin 6.4, and platelet count of 134. He will receive 2 units of packed red blood cells transfusion. Other treatment will be continued. Job ID: [id number]
[2020-04-21 07:20] LABS: Anion Gap 11 mmol/L (10-20); BUN (Urea Nitrogen) 51 mg/dL (8.4-25.7); Calc. Creatinine Clearance 100 mL/min (70-130); Calcium 7.7 mg/dL (7.8-10.44); Carbon Dioxide 27 mmol/L (23-31); Chloride 102 mmol/L (98-107); Estimated GFR-MDRD Greater than 90; Glucose 93 mg/dL (80-115); Potassium 4.5 mmol/L (3.5-5.1); Sodium 135 mmol/L (136-145)
[2020-04-21 08:34] LABS: Anisocytosis SLIGHT = 6-15 cells (100X) (0-5/hpf); Band 14 % (5-11); Eosinophils 2 % (0-10); Hemoglobin 6.9 g/dL (14.0-18.0); Lymphocytes 14 % (21-51); MDiff Complete? YES; Mean Corpuscular HGB CONC 33.3 g/dL (32.0-36.0); Mean Corpuscular Hemoglobin 32.3 pg (27.0-31.0); Mean Corpuscular Volume 96.9 fL (78.0-98.0); Mean Platelet Volume 7.9 fL (7.4-10.4); Monocytes 30 % (0-10); Myelocyte 1 % (0-0); Neutrophil 39 % (42-75); Platelet Count 106 thou/uL (130-400); Platelet Morphology Comment Appears Decreased; RBC Distribution Width 23.4 % (11.5-14.5); Red Blood Cell (RBC) Count 2.15 mill/uL (4.70-6.10); White Blood Cell (WBC) Count 4.8 thou/uL (4.8-10.8)
--- NOTE | 2020-04-21 08:55 | RAD ---
ACUTE ABDOMINAL SERIES: DATE: 04/21/2020. PROVIDED CLINICAL HISTORY: Hemoptysis. FINDINGS: Comparison 04/18/2020 chest radiograph. Cardiac and mediastinal silhouette is within normal limits. L eft-sided implanted port is again seen in similar position. No focal consolidation, pleural fluid, o r pneumothorax apparent. Vascular calcifications are again seen. Two views of the abdomen demonstrate a nonspecific bowel gas pattern. There is no evidence for pneum operitoneum. PEG tube overlies the left upper quadrant. No radiographically apparent urinary tract calculi. Osseous structures demonstrate no acute findings. IMPRESSION: No evidence for an acute process. POS: KRIS
--- NOTE | 2020-04-21 09:16 | PDOC.HOSPP ---
- Subjective Encounter Date: 04/21/20 Encounter Time: 09:14 Subjective: The patient was noted to be hypotensive to 70 systolic this morning and tachycardic. He denies chest pain or dizziness. He states he just feels like crap He had two units of blood yesterday. He was noted to have excessive cough last night . He denies any overt GI bleeding - Objective Vital Signs & Weight: Vital Signs (12 hours) Temp Pulse Pulse Resp BP BP Pulse Ox 04/21/20 08:00 98.6 F 121 H 32 H 71/42 L 97 04/21/20 04:37 99.1 F 112 H 16 105/55 L 99 04/21/20 04:00 99.1 F 112 H 16 105/55 L 99 04/21/20 01:36 98.4 F 104 H 16 82/61 L 97 04/21/20 01:21 98.7 F 108 H 16 88/51 L 97 04/21/20 00:00 108 H 16 88/51 L Weight Admit Weight 140 lb 9.6 oz Weight 149 lb 8 oz I&O: 04/20/20 04/21/20 04/22/20 06:59 06:59 06:59 Intake Total 2950 730 500 Output Total 1075 880 Balance 1875 730 -380 Result Diagrams: 04/21/20 06:50 04/21/20 06:50 Hospitalist ROS - Review of Systems Constitutional: denies: fever, chills - Medication Medications: Active Medications Generic Name Dose Route Start Last Admin Trade Name Freq PRN Reason Stop Dose Admin Acetaminophen 650 mg 04/18/20 14:54 04/20/20 23:00 Tylenol PO 650 mg Q4H PRN Administration Headache/Fever/Mild Pain (1-3) Vancomycin HCl 1 gm/ Device 200 mls @ 200 mls/hr 04/18/20 23:59 04/20/20 23: 00 IVPB 200 mls 1200,2359 FLORINDA Administration Piperacillin Sod/Tazobactam 100 mls @ 200 mls/hr 04/20/20 18:00 04/21/20 06: 29 Sod 3.375 gm/ Sodium Chloride IVPB 100 mls Q6HR FLORINDA Administration Sodium Chloride 10 ml 04/20/20 21:00 04/20/20 20:28 Flush - Normal Saline IVF 10 ml Q12HR FLORINDA Administration - Exam General Appearance: NAD, awake alert Eye: PERRL, anicteric sclera ENT: normocephalic atraumatic, no oropharyngeal lesions Neck: no JVD Heart: RRR, no murmur, no gallops, no rubs Respiratory: CTAB, no wheezes, no rales, no ronchi, no tachypnea Gastrointestinal: soft, non-tender, non-distended Gastrointestinal - other findings: PEG tube with dried blood around the area. Rectal exam showed brown stool Extremities: no cyanosis, no clubbing, no edema Hosp A/P - Plan This is 64 year old male who presented with fever, and PEG tube dislodgement Sepsis - possibly PEG cellulitis - blood and urine culture normal. Will repeat blood cultures today since BP 70 systolic. EKG showed sinus tachycardia. CXR ordered - continue vancomycin and zosyn (started 04/20) #Hypotension #Leukopenia - likely from chemo #Anemia- likely from chemo - given 1L of IV fluid with improvement to 90 systolic - repeat blood cultures - CBC still shows low Hb 6.9. Folate normal, B12 normal last month. Appreciate hematology input. CT abdomen showed no hematoma earlier this admission. Rectal exam showed no overt blood. Check stool guaiac. Will consider another blood transfusion - COVID negative #Hypomagnesemia - mg of 1.7, will give another 2 grams of magnesium
[2020-04-21] MEDS ORDERED: Magnesium Sulfate 2 GM in Premix Bag 1 BAG IVPB SCH (09:30)
[2020-04-21] MEDS ORDERED: Magnesium 2 GM/50 ML 2 GM in Premix Bag 1 BAG IVPB SCH (09:45)
[2020-04-21] MEDS ORDERED: Sodium Chloride 0.9% 500 ML IV SCH (10:45)
[2020-04-21] MEDS ORDERED: Sodium Chloride 0.9% 1,000 ML IV SCH ×2 (10:45→11:49)
--- NOTE | 2020-04-21 11:55 | RAD ---
PORTABLE CHEST: HISTORY: Infection. FINDINGS: Heart size and mediastinum are within normal limits. The lungs appear clear of any infiltrative proc ess. A left-sided MediPort catheter is present. IMPRESSION: No active intrathoracic disease. POS: ANGELA
[2020-04-21] MEDS ORDERED: Pantoprazole 40 MG VIAL IVP SCH (12:00)
[2020-04-21 12:18] LABS: Vancomycin, Trough 19.6 ug/mL
[2020-04-21] MEDS ORDERED: Lidocaine 1% PF 5 ML VIAL ONE (14:10)
[2020-04-21] MEDS ORDERED: PROPOFOL 200 MG/20 ML VIAL ONE (14:10)
[2020-04-21] MEDS ORDERED: Rocuronium Bromide 10 MG/ML (10ML VIAL) ONE (14:10)
[2020-04-21] MEDS ORDERED: Succinylcholine Chloride 20 MG/ML 10 ml SYRINGE FS ONE (14:10)
[2020-04-21] MEDS ORDERED: Ondansetron PF 4 MG/2 ML Vial ONE (14:10)
[2020-04-21] MEDS ORDERED: PHENYLEPHRINE-NS 100 MCG/ML 10 ML SYRINGE ONE (14:10)
[2020-04-21] MEDS ORDERED: Ondansetron HCl/PF 4 MG/2 ML Vial IVP PRN (15:29)
[2020-04-21] MEDS ORDERED: Promethazine HCl 25 MG/ML VIAL IM PRN (15:29)
[2020-04-21] MEDS ORDERED: Promethazine HCl 25 MG/ML VIAL SLOW IVP PRN (15:29)
[2020-04-21] MEDS: Vancomycin 1 GM in Premix Bag 1 BAG IVPB SCH ×2 (16:52→18:03)
--- NOTE | 2020-04-21 18:32 | PRG ---
DATE OF SERVICE: 04/21/2020 The patient is feeling poorly today. He had a near syncopal episode when he tried to stand up. His hemoglobin yesterday was 6.4. He was given 2 units of packed red blood cells. His hemoglobin today is 6.9. The patient also has black tarry stool. Physical examination is unchanged. He has normal white cells at 4.8 thousand and platelets are 106. He is not on any anticoagulation. He will be given 2 units of packed red blood cells and I have discussed his case with who will see him later today. Job ID: [id number]
[2020-04-21 18:56] LABS: Anisocytosis SLIGHT = 6-15 cells (100X) (0-5/hpf); Band 44 % (5-11); Eosinophils 1 % (0-10); Hemoglobin 9.2 g/dL (14.0-18.0); Lymphocytes 10 % (21-51); MDiff Complete? YES; Mean Corpuscular HGB CONC 33.6 g/dL (32.0-36.0); Mean Corpuscular Hemoglobin 32.3 pg (27.0-31.0); Mean Corpuscular Volume 96.1 fL (78.0-98.0); Monocytes 24 % (0-10); Neutrophil 17 % (42-75); Platelet Count 116 thou/uL (130-400); Platelet Morphology Comment Appears Decreased; Polychromasia SLIGHT = 2-3 cells (100X) (0-2/hpf); RBC Distribution Width 19.7 % (11.5-14.5); Reactive Lymphocytes 3 % (0-10); Red Blood Cell (RBC) Count 2.83 mill/uL (4.70-6.10); Tear Drops SLIGHT = 2-5 cells (100X) (0-1/hpf); White Blood Cell (WBC) Count 4.6 thou/uL (4.8-10.8)
[2020-04-21] MEDS: Pantoprazole 40 MG VIAL IVP SCH (21:05)
[2020-04-22] MEDS: Piperacillin/Tazobactam 3.375 GM in Sodium Chloride 0.9% 100 ML IVPB SCH ×3 (02:58→14:25)
[2020-04-22] MEDS: Vancomycin 1 GM in Premix Bag 1 BAG IVPB SCH (04:19)
--- NOTE | 2020-04-22 07:13 | CON ---
DATE OF CONSULTATION: 04/21/2020 REASON FOR CONSULTATION: Possible GI bleed. HISTORY OF PRESENT ILLNESS: Mr. Dumont is a 64-year-old gentleman, who has a history of pharyngeal cancer, who has had a previous PEG tube placement and has completed radiation therapy about 2 to 3 weeks ago and chemotherapy. He came in as he stated his PEG tube has fallen out and that he had a fever, his temperature was 100.3. There was concern that he had some cellulitis at the PEG tube site. The PEG tube was replaced in the emergency room. He was anemic when he came in. He received a unit of blood. He subsequently had a second unit of blood on the and a unit of blood today. The etiology of anemia was unclear, but today he had a melenic stool and I was called by Dr. Ceron to take a look at him. The patient denies use of NSAIDs. Denies prior history of ulcers or bleeding. He has not had a previous colonoscopy. He denies using NSAIDs or taking a PPI and denies any home medications. When he was last here, he was discharged home on some levofloxacin and Nicoderm, that was in January. Here, he had a CAT scan of the abdomen and pelvis on admission that showed possible cellulitis at the PEG tube site, but no abscess, no free fluid or air in the abdomen. There was a 6 mm periaortic lymph node. Vascular calcifications. He had a chest x-ray that showed no acute processes. He had negative urine culture and blood cultures. Back in January, he had negative flu tests. He had COVID test on 01/23 and 04/19, both of which were negative. Baseline hemoglobin back in November and December was around 12 to 13. In January, it was around 10. This admission it was 6, came up to 7.3, and this morning it is 6.9. White blood cells were 4.8, platelets were 106, they run typically back in November in the 300s, but more recently in the mid 100s. INR was 0.9 back in November. BUN is 50 and creatinine is 0.7. It was 16 and 0.5 yesterday. He had his PEG put in elsewhere. PRESENT MEDICATIONS: 1. Acetaminophen. 2. Zofran. 3. Zosyn. 4. Vancomycin. 5. Normal saline at 100. 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 PAST SURGICAL HISTORY: MediPort placement, PEG tube placement elsewhere, PEG replaced in the ER this admission. ALLERGIES: NONE KNOWN. MEDICATIONS AT HOME: None. SOCIAL HISTORY: The patient lives at home with his . He used to smoke. He does not drink or use drugs now. He was a heavy drinker in the past. FAMILY HISTORY: Noncontributory. The patient denies any family history of colorectal cancer. REVIEW OF SYSTEMS: Feeds through his PEG tube. He has no pain there. He has had no chills or rigors. He denies any shortness of breath. He still has dysphagia. Denies any epigastric abdominal pain. PHYSICAL EXAMINATION: VITAL SIGNS: Temperature is 98, pulse 121, blood pressure is 171/42 that was at 8 a.m. Most recent blood pressure is 105/57. GENERAL: He has a raspy voice. He feels weak. He looks pale. LUNGS: Clear. HEART: Regular rate and rhythm without clicks or murmurs. ABDOMEN: Hyperactive bowel sounds. He has a melenic stool in the toilet. EXTREMITIES: No clubbing, cyanosis, or edema. NEUROLOGIC: He is alert and oriented. LABORATORY: White count 3.9, hemoglobin 6.2, MCV 107, and platelets 134. Sodium 135, potassium 3.5, BUN and creatinine 51 and 0.7. On 03/20, he had normal liver function tests. Albumin of 3. Lipase was 8. B12 was 1000 in February. No iron studies. ASSESSMENT: 1. This is a 64-year-old gentleman with history of pharyngeal cancer, status post radiation and chemotherapy, admitted for fever and PEG dysfunction. His PEG has been replaced and appears to be in place on his CAT scan. The site looks pretty normal. He has been treated empirically with antibiotic for possible cellulitis there. 2. Severe anemia. It seems now he is having a gastrointestinal bleed. He has an elevated BUN and he has had a melenic stool and a presyncopal episode today. He has had several units of blood since being admitted. He is going to have two more units now per orders from Hematology. RECOMMENDATIONS: 1. N.p.o., stop tube feeds. 2. IV fluids at 150 an hour until blood arrives. 3. Check INR. 4. Protonix IV q.12. 5. Emergent endoscopy today. Risks, benefits, and possible complications were discussed with the patient. He wishes to proceed. The case has been posted. Job ID: [id number]
[2020-04-22 07:28] LABS: Mean Corpuscular HGB CONC 34.2 g/dL (32.0-36.0); Mean Corpuscular Hemoglobin 32.5 pg (27.0-31.0); Mean Corpuscular Volume 94.9 fL (78.0-98.0); Mean Platelet Volume 8.3 fL (7.4-10.4); Platelet Count 115 thou/uL (130-400); RBC Distribution Width 20.1 % (11.5-14.5); Red Blood Cell (RBC) Count 2.45 mill/uL (4.70-6.10); White Blood Cell (WBC) Count 3.8 thou/uL (4.8-10.8)
[2020-04-22 07:41] LABS: ALT (SGPT) 10 U/L (8-55); AST (SGOT) 20 U/L (5-34); Albumin 2.4 g/dL (3.4-4.8); Alkaline Phosphatase 52 U/L (40-110); Anion Gap 10 mmol/L (10-20); BUN (Urea Nitrogen) 34 mg/dL (8.4-25.7); Bilirubin, Total 0.6 mg/dL (0.2-1.2); Calc. Creatinine Clearance 100 mL/min (70-130); Calcium 7.7 mg/dL (7.8-10.44); Carbon Dioxide 24 mmol/L (23-31); Chloride 107 mmol/L (98-107); Estimated GFR-MDRD Greater than 90; Globulin 3.1 g/dL (2.4-3.5); Glucose 96 mg/dL (80-115); Potassium 3.7 mmol/L (3.5-5.1); Protein, Total 5.5 g/dL (5.8-8.1); Sodium 137 mmol/L (136-145)
[2020-04-22] MEDS: Pantoprazole 40 MG VIAL IVP SCH ×2 (09:23→20:31)
[2020-04-22 10:15] LABS: Band 18 % (5-11); Eosinophils 2 % (0-10); Lymphocytes 15 % (21-51); MDiff Complete? YES; Monocytes 20 % (0-10); Neutrophil 45 % (42-75); Platelet Morphology Comment Appears Decreased; Polychromasia SLIGHT = 2-3 cells (100X) (0-2/hpf)
[2020-04-22 12:08] LABS: Hemoglobin 8.3 g/dL (14.0-18.0); Mean Corpuscular HGB CONC 32.9 g/dL (32.0-36.0); Mean Corpuscular Hemoglobin 31.3 pg (27.0-31.0); Mean Corpuscular Volume 94.9 fL (78.0-98.0); Mean Platelet Volume 8.3 fL (7.4-10.4); Platelet Count 115 thou/uL (130-400); Red Blood Cell (RBC) Count 2.66 mill/uL (4.70-6.10); White Blood Cell (WBC) Count 3.7 thou/uL (4.8-10.8)
--- NOTE | 2020-04-22 14:57 | PRG ---
DATE OF SERVICE: 04/22/2020 SUBJECTIVE: Mr. Dumont had no bleeding. He wanted to go home. He is tolerating tube feeds. OBJECTIVE: GENERAL: He is alert and oriented. He looks more pink than yesterday. ABDOMEN: Soft, nontender. PEG tube site is clean and dry. EXTREMITIES: No edema. VITAL SIGNS: Temperature 98.6, pulse 96, blood pressure 112/57. LABORATORY DATA: Hemoglobin 8, white count 3.8, platelets 115. AST and ALT are 20 and 10, alkaline phosphatase is 52, albumin 2.4, protein 5.5. Electrolytes normal. BUN has come down from 51 to 34. ASSESSMENT: Upper gastrointestinal hemorrhage secondary to gastric ulcer related to underlying disease therapy and NSAIDs. RECOMMENDATION: Recheck H and H tomorrow. Continue tube feeds. Switch to p.o. PPI tomorrow if hemoglobin remains stable. No signs of acute hemorrhage. From a GI standpoint, he would be able to go home. We will follow up on biopsies. Job ID: [id number]
--- NOTE | 2020-04-22 15:27 | PDOC.HOSPP ---
- Subjective Encounter Date: 04/22/20 Encounter Time: 10:00 Subjective: The patient is doing better. He had one black tarry stool this am per patient. Hb dropped to 8, repeat went up to 8.3. No abd pain, nausea, vomiting - Objective Vital Signs & Weight: Vital Signs (12 hours) Temp Pulse Resp BP Pulse Ox 04/22/20 11:33 97.6 F 96 19 112/57 L 94 L 04/22/20 08:40 98.0 F 94 22 H 106/53 L 94 L 04/22/20 04:13 98.2 F 97 17 104/51 L 98 Weight Admit Weight 140 lb 9.6 oz Weight 149 lb 8 oz I&O: 04/21/20 04/22/20 04/23/20 06:59 06:59 06:59 Intake Total 730 1140 705 Output Total 880 Balance 730 260 705 Result Diagrams: 04/22/20 11:47 04/22/20 07:12 Hospitalist ROS - Review of Systems Constitutional: denies: fever, chills - Medication Medications: Active Medications Generic Name Dose Route Start Last Admin Trade Name Freq PRN Reason Stop Dose Admin Acetaminophen 650 mg 04/18/20 14:54 04/20/20 23:00 Tylenol PO 650 mg Q4H PRN Administration Headache/Fever/Mild Pain (1-3) Piperacillin Sod/Tazobactam 100 mls @ 200 mls/hr 04/21/20 20:00 04/22/20 14: 25 Sod 3.375 gm/ Sodium Chloride IVPB 100 mls 0200,0800,1400,2000 FLORINDA Administration Pantoprazole Sodium 40 mg 04/21/20 21:00 04/22/20 09:23 Protonix IVP 40 mg Q12HR FLORINDA Administration Sodium Chloride 10 ml 04/20/20 21:00 04/22/20 09:23 Flush - Normal Saline IVF 10 ml Q12HR FLORINDA Administration - Exam General Appearance: NAD, awake alert Eye: PERRL, anicteric sclera ENT: normocephalic atraumatic, no oropharyngeal lesions ENT - other findings: transmitted rhonchi from laryngeal area. Hoarse voice Neck: no JVD Heart: RRR, no murmur, no gallops, no rubs Respiratory: CTAB, no wheezes, no rales Gastrointestinal: soft, non-tender, non-distended, normal bowel sounds Gastrointestinal - other findings: PEG tube with no sign of infection Extremities: no edema Skin: normal turgor, no lesions, no rashes Hosp A/P - Plan Consults: Hospice This is 64 year old male who presented with fever, and PEG tube dislodgement Sepsis - possibly PEG cellulitis - blood and urine culture normal. Repeat blood cultures 04/21 was normal - will discontinue vancomycin. On IV zosyn, will switch to oral antibiotics #Acute blood loss anemia secondary to GI bleed with ulcer s/p cauterization #Hypotension - resolved -patient had black tarry stool yesterday. Per Gi, there was ulcer that required cauterization - continue IV protonix today, switch to oral tomorrow - patient is s/p 4 units blood transfusion #Leukopenia - likely from chemo - stable -COVID negative #Hypomagnesemia - recheck magnesium tomorrow. REceived 2 grams mag yesterday Disposition: likely d/c in the am
--- NOTE | 2020-04-22 16:20 | OP ---
DATE OF PROCEDURE: 04/21/2020 PROCEDURE PERFORMED: Esophagogastroduodenoscopy with control of hemorrhage. PREPROCEDURE DIAGNOSES: 1. Gastrointestinal hemorrhage. 2. Severe anemia, syncopal episode, status post resuscitation. 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 POSTPROCEDURE DIAGNOSES: 1. Necrotic supraglottic cancer, nonbleeding. 2. Mild reflux esophagitis. 3. Gastritis in the antrum with an ulcer at the incisura with visible vessel, likely source of bleeding, cauterized and clipped. RECOMMENDATIONS: PPI IV q.12, transfuse as needed to keep hemoglobin greater than 8. DESCRIPTION OF PROCEDURE: After patient was informed of the risks, benefits, and possible complications of endoscopy including perforation, reaction to medication, and aspiration, informed consent was obtained. The patient was brought to endoscopy suite, where he was sedated in a gradual fashion. Once he was comfortable, a bite block was placed in the incisural orifice and then advanced to the esophagus, stomach, and the second and third portions of duodenum and slowly removed. There was no active hemorrhage, but old blood, and heme staining was noted in the mucosa of the stomach and duodenum. The duodenum was normal to the third portion. There were no ulcers or erosions. The antrum of the stomach was notable for mild gastritis with diffuse small ulcers and then he had a 7 mm ulcer at the incisura with visible vessel that was cauterized with a 10-[place] heater probe cautery and then clipped. There was good hemostasis. The remainder of the stomach was normal, and retroflexed views of the esophagus showed mild distal esophagitis. The scope was removed. The patient was extubated and then brought to recovery room in stable condition. The findings were discussed with the patient and his son. Job ID: [id number]
[2020-04-22] MEDS: Amoxicillin/Potassium Clav 875 MG TAB PO SCH (20:31)
[2020-04-23 04:18] LABS: Hemoglobin 8.2 g/dL (14.0-18.0); Mean Corpuscular HGB CONC 33.8 g/dL (32.0-36.0); Mean Corpuscular Hemoglobin 32.5 pg (27.0-31.0); Mean Platelet Volume 7.8 fL (7.4-10.4); Platelet Count 123 thou/uL (130-400); RBC Distribution Width 19.9 % (11.5-14.5); Red Blood Cell (RBC) Count 2.51 mill/uL (4.70-6.10); White Blood Cell (WBC) Count 4.6 thou/uL (4.8-10.8)
[2020-04-23 04:46] LABS: Anion Gap 12 mmol/L (10-20); BUN (Urea Nitrogen) 24 mg/dL (8.4-25.7); Calc. Creatinine Clearance 94 mL/min (70-130); Carbon Dioxide 25 mmol/L (23-31); Chloride 107 mmol/L (98-107); Estimated GFR-MDRD Greater than 90; Glucose 97 mg/dL (80-115); Magnesium 1.6 mg/dL (1.6-2.6); Potassium 3.8 mmol/L (3.5-5.1); Sodium 140 mmol/L (136-145)
[2020-04-23] MEDS: Amoxicillin/Potassium Clav 875 MG TAB PO SCH (09:03)
[2020-04-23] MEDS: Acetaminophen 325 MG TAB PO PRN (09:04)
[2020-04-23 11:49] VITALS: BP 108/58; TEMP 98.1
--- NOTE | 2020-04-23 18:46 | DIS ---
DATE OF ADMISSION: 04/20/2020 DATE OF DISCHARGE: 04/23/2020 CONSULTATIONS: 1. Jace Mccormack MD with GI. 2. Franchesca Ceron MD with Hematology Oncology. PROCEDURES PERFORMED: Upper endoscopy on 04/22. DISCHARGE DIAGNOSES: 1. Acute gastrointestinal bleed secondary to gastric ulcer status post cauterization. 2. Sepsis secondary to cellulitis. 3. Leukopenia. 4. Thrombocytopenia. 5. History of laryngeal cancer. BRIEF HISTORY OF PRESENT ILLNESS: This is a 64-year-old male with a past medical history laryngeal cancer, who presented to the emergency room with fever after his PEG tube became dislodged. His temperature was 100.3. The patient had received chemo and radiation and completed this therapy in March. He reported a chronic cough. He states that his PEG tube fell out when he bent over. The patient was incidentally found to be anemic with a hemoglobin of 6.6. He was also noted to be tachycardic. He had a CT scan of his abdomen done in the emergency room, which showed no significant pathology and a chest x-ray which was normal. He was given broad-spectrum antibiotics and admitted for further workup. HOSPITAL COURSE: Sepsis secondary to cellulitis: The patient had fevers up to 102.4 and was tachycardic and hypotensive. He was initially treated with IV vancomycin, however, Zosyn was added due to persistent fever and tachycardia. The patient remained afebrile with this. His cellulitis rapidly resolved. He was switched to oral antibiotics with Augmentin on discharge. I did not see any evidence of cellulitis around his PEG tube site at the time of discharge. Therefore, he was given a prescription for Augmentin for only three more days to complete a 5-day course of antibiotics. He had blood and urine cultures done, which were negative. He also had COVID serology done, which was negative. Acute blood loss anemia secondary to gastric ulcer: The patient had 4 units of blood while in the hospital with no significant improvement in his hemoglobin. On 04/21, the patient was noted to have black tarry stools. GI was consulted. The patient was started on Protonix and underwent upper endoscopy, which showed a gastric ulcer with bleeding that was cauterized and clipped. He also had some gastritis. He was continued on IV Protonix for one additional day due to a slight drop in his hemoglobin. On the day of discharge, hemoglobin remained stable at 8.2. He was switched to oral Protonix 40 mg twice daily. He will follow up with his PCP in a week and get a repeat CBC to make sure his blood counts are stable. The patient had no further bloody stools at the time of discharge. DISCHARGE PHYSICAL EXAMINATION: VITAL SIGNS: Temperature 98.1, heart rate 99, respiratory rate 18, O2 saturation 100% on room air, blood pressure 108/58. GENERAL: The patient is alert, awake, and oriented x3. CVS: Regular rate and rhythm with no murmurs, rubs, or gallops. LUNGS: Clear to auscultation bilaterally. ABDOMEN: The patient has a PEG tube in place in the left upper quadrant. There are no signs of infection. Nontender and nondistended. No rash noted. EXTREMITIES: No edema. PERTINENT LABORATORY DATA: CBC 04/23: White count 4.6, hemoglobin 8.2, hematocrit 24.1, platelet count 123. BMP 04/23: Unremarkable. LFTs 04/22: Normal. Folate: 14.4. TSH: 1.99. UA 04/18: Negative. COVID PCR 04/19: Negative. Blood culture 04/18: Negative. Urine culture 04/18: Negative. Blood culture 04/21: Negative. IMAGING: CT abdomen pelvis 04/18: No evidence of metastatic disease. PEG tube in place without evidence of drainable abscess. Chest x-ray 04/18: No acute process. Acute abdomen series 04/21: Negative. Chest x-ray 04/21: Negative. Gastric biopsy 04/22: Mild chronic inactive gastritis. No H pylori organisms identified. DISCHARGE CONDITION: Stable. DIET: Tube feeding diet. DISCHARGE MEDICATIONS: 1. Augmentin 875 mg p.o. q.12 hours for 5 days. 2. Protonix 40 mg p.o. b.i.d. DISCHARGE INSTRUCTIONS: The patient should follow up with his PCP in a week and Dr. Mccormack in a month. Consider repeat CBC to evaluate for improvement in anemia. Job ID: [id number] [facility]
== END 2020-04-23 11:45 | disposition home or self-care (01) | DRG 871 ==
LOC: ERS 09:39 → ONC 14:23 → OBSVTOIN 04-20 17:45 → 2NO 04-21 16:08
PROVIDERS: ADMIT Internal Medicine; ATTEND Internal Medicine
PROC: 30233N1 Transfusion of Nonautologous Red Blood Cells into Peripheral Vein, Percutaneous Approach (ICD-10-PCS; 2020-04-20)
PROC: 8E0ZXY6 Isolation (ICD-10-PCS; 2020-04-20)
PROC: 0W3P8ZZ Control Bleeding in Gastrointestinal Tract, Via Natural or Artificial Opening Endoscopic (ICD-10-PCS; principal; 2020-04-21)
DX: A41.9 Sepsis, unspecified organism (principal); K25.0 Acute gastric ulcer with hemorrhage; K94.22 Gastrostomy infection; D62 Acute posthemorrhagic anemia; D69.6 Thrombocytopenia, unspecified; C32.9 Malignant neoplasm of larynx, unspecified; Z20.828 Contact with and (suspected) exposure to other viral communicable diseases; Y83.8 Other surgical procedures as the cause of abnormal reaction of the patient, or of later complication, without mention of misadventure at the time of the procedure; D64.81 Anemia due to antineoplastic chemotherapy; I95.9 Hypotension, unspecified; K21.0 Gastro-esophageal reflux disease with esophagitis; T45.1X5A Adverse effect of antineoplastic and immunosuppressive drugs, initial encounter; E83.42 Hypomagnesemia; Z87.891 Personal history of nicotine dependence
CPT/HCPCS: 36415; 36430; 71045; 74022; 74177; 80048; 80053; 80202; 81003; 82746; 83605; 83690; 83735; 84443; 85025; 85027; 86850; 86900; 86901; 87040; 87086; 87635; 88305; 88312; 93005; 93010; 96361; 96365; 96366; C9113; G0378; J1642; J2001; J2405; J2543; J2704; J3370; J3475; J3490; P9016; Q9967; U0003

== ENCOUNTER 2020-05-21 09:32 | Outpatient (CLI) | payer MEDICARE, OTHER ==
--- NOTE | 2020-05-21 12:37 | PET ---
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 Evaluate for response to treatment" COMPARISON: 01/04/2020 TECHNIQUE: IV injection of F-18 fluorodeoxyglucose (FDG) dose: 12.2 mCi. PET scan and attenuation correction CT performed from skull base to proximal thighs. PET scan and attenuation correction CT thinner slices performed through head and neck. FINDINGS: SUV (standard uptake values) numbers given are maximum SUVs. QCLR used. Previously, there was one craniocaudally long, large contiguous hypermetabolic tumor involving the le ft side of the neck, beginning at the level of the palatine tonsil, and extending inferiorly to involve the left hypopharynx. Now, the degree of FDG avidity has decreased, although the mass effect is now worse, because of new f inding of post radiation edema involving superficial and deep spaces, such that there is now deviation of the epiglottis and other supraglottic laryngeal structures to the right. The previously contiguous hypermetabolic activity has become isolated, such that there is a left supe rior island of FDG avidity in the region of the left palatine tonsil with SUV of 7.8, and separate islands of hypermetabolic activity more inferiorly, including at the posterior superior corner of the left hyoid bone with SUV of 6.1. Just posterior to that, left posterior lateral hypopharynx SUV is 5.9. This is a horizontally contiguous with activity at midline posterior to the false cords with uptake o f 5.2. Previously, there was a very hypermetabolic metastatic left level 2 lymph node. That lymph node is cu rrently nonhypermetabolic, and significantly smaller (now difficult to visualize on the noncontrast CT with the surrounding edema). Currently, there is no hypermetabolic cervical lymphadenopathy. At the apical segment of the right upper lobe, there is an approximately 0.8 x 0.8 cm noncalcified pu lmonary nodule abutting the posterior medial pleural surface adjacent to the proximal aspect of the right third rib. Although it has not changed in size, it is now hypermetabolic with SUV of 4.8, where as previously it was not hypermetabolic. There is no abnormally hypermetabolic activity in the rest of the chest, abdomen, or pelvis. IMPRESSION: 1) interval improvement, with decrease in degree of FDG avidity involving the mass involving left hyp opharynx and left tonsillar pillar. 2.) Interval resolution of the previously hypermetabolic left level 2 cervical lymph node. 3) a previously nonhypermetabolic 8 mm right apical pulmonary nodule has now become hypermetabolic, a lthough its size has not changed. There is uncertainty regarding whether this is a pulmonary metastasis or not. 4) no other potential distant metastatic lesions. 5) new finding of post radiation edema throughout the neck.
== END 2020-05-21 09:33 | disposition home or self-care (01) ==
LOC: PET 09:32
PROVIDERS: ATTEND Internal Medicine Hematology & Oncology
DX: C13.9 Malignant neoplasm of hypopharynx, unspecified (principal); C77.0 Secondary and unspecified malignant neoplasm of lymph nodes of head, face and neck; R91.1 Solitary pulmonary nodule
CPT/HCPCS: 78815; A9552

== ENCOUNTER 2020-06-09 22:17 | Inpatient (IN) | payer MEDICARE, OTHER ==
[~2020-06-09 22:17] MED LIST: Iopamidol 370 76% 100 ML VIAL ONE
[2020-06-09 23:10] LABS: Mean Corpuscular HGB CONC 33.7 g/dL (32.0-36.0); Mean Platelet Volume 7.2 fL (7.4-10.4); Platelet Count 186 thou/uL (130-400); RBC Distribution Width 14.7 % (11.5-14.5); Red Blood Cell (RBC) Count 2.65 mill/uL (4.70-6.10); White Blood Cell (WBC) Count 5.5 thou/uL (4.8-10.8)
--- NOTE | 2020-06-09 23:12 | RAD ---
XR Chest 1 View Portable HISTORY: Shortness of breath COMPARISON: 04/21/2020 FINDINGS: The heart size is normal. Left-sided Mediport catheter remains in place. The lungs are well expanded without focal areas of consolidation, pneumothorax or pleural effusions. IMPRESSION: No radiographic evidence of acute cardiopulmonary process.
[2020-06-09 23:29] LABS: ALT (SGPT) 15 U/L (8-55); AST (SGOT) 29 U/L (5-34); Albumin 3.2 g/dL (3.4-4.8); Alkaline Phosphatase 93 U/L (40-110); Anion Gap 14 mmol/L (10-20); BUN (Urea Nitrogen) 16 mg/dL (8.4-25.7); Bilirubin, Total 0.3 mg/dL (0.2-1.2); Calc. Creatinine Clearance 0 mL/min (70-130); Calcium 7.9 mg/dL (7.8-10.44); Carbon Dioxide 25 mmol/L (23-31); Chloride 85 mmol/L (98-107); Estimated GFR-MDRD Greater than 90; Globulin 3.4 g/dL (2.4-3.5); Glucose 90 mg/dL (80-115); Potassium 4.6 mmol/L (3.5-5.1); Protein, Total 6.6 g/dL (5.8-8.1)
[2020-06-09 23:32] LABS: Sodium 119 mmol/L (136-145)
[2020-06-09 23:36] LABS: Band 4 % (5-11); Hypochromia SLIGHT = 6-15 cells (100X) (0-5/hpf); Lymphocytes 7 % (21-51); MDiff Complete? YES; Monocytes 20 % (0-10); Neutrophil 69 % (42-75); Platelet Morphology Comment Appears Adequate
--- NOTE | 2020-06-09 23:42 | CT ---
CT PULMONARY ANGIOGRAM WITH IV CONTRAST AND 3-D POSTPROCESSING: HISTORY:Shortness of breath. Head and neck cancer FINDINGS: There is good contrast opacification of the pulmonary arterial vasculature without filling defects to suggest pulmonary embolism. The thoracic aorta is well opacified without aneurysm or dissection. No pleural or pericardial effusions are seen. No pneumothoraces, focal areas of consolidation are noted. Right apical nodule is stable since PET-CT scan of 05/21/2020. Scarring in the left apex is stable There are degenerative changes in the spine. IMPRESSION: No CT evidence of pulmonary embolism.
[2020-06-10 00:04] LABS: Bilirubin Negative (Negative); Blood, Urine Negative (Negative); Clarity Clear (Clear); Glucose, Urine (Dipstick) Normal (Negative); Ketone, Urine Negative (Negative); Leukocyte Negative Leu/uL (Negative); Nitrite Negative (Negative); Protein, Urine (Dipstick) Negative (Neg-Trace); Specific Gravity, Urine 1.021 (1.002-1.036); Urobilinogen Normal mg/dL (Less than 2)
[2020-06-10] MEDS ORDERED: Ondansetron PF 4 MG/2 ML Vial IVP PRN (01:31)
[2020-06-10] MEDS ORDERED: Acetaminophen 650 MG Suppository PR PRN (01:31)
--- NOTE | 2020-06-10 02:02 | PDOC.FPRHP ---
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 The patient says he was sitting at a table around midday when he grew dizzy while coughing and felt like he could pass out. He denies headache, lightheadedness or vertigo while sitting or standing at the time. He denies history of similar symptoms in the past. He reports a chronic cough for years that is productive with blood tinged sputum. He says the color darkens depending on the severity of his cough that day. He denies change in PEG feedings and reports getting his fluids through PEG. He notes chronic fatigue since cancer diagnosis but denies headache, chest pain, SOB, nausea, vomiting, change in BMs, edema and generalized weakness. He was recently admitted on 04/20-04/23/20 for acute GI bleed 2/2 gastric ulcer s/p cauterization and sepsis 2/2 cellulitis. He reports chronically low hemoglobin. ED Course: In the ED, Na ws 119. Received 1L NS. - Allergies/Adverse Reactions Allergies Allergy/AdvReac Type Severity Reaction Status Date / Time No Known Allergies Allergy Verified 04/18/20 17:56 - Home Medications Medication Instructions Recorded Confirmed Type No Known 06/10/20 06/10/20 History - History PMHx: squamous cell carcinoma of throat PSHx: cataracts bilaterally FHx: Noncontributory Social: Previously smoked 1-2 ppd for 40 years, quit in 2006. Previously used chewing tobacco, quit once diagnosed with cancer. Previously drank 2 12-packs of beer but quit in 12/07. Lives at home with . - Review of Systems General: reports: fatigue. denies: fever/chills, weight/appetite/sleep changes Eyes: denies: eye pain, vision changes ENT: denies: nasal congestion, rhinorrhea Respiratory: reports: cough. denies: congestion, shortness of breath Cardiovascular: denies: chest pain, palpitation, edema Gastrointestinal: denies: nausea, vomiting, diarrhea, constipation, abdominal pain Genitourinary: denies: dysuria, discharge Skin: denies: rashes, lesions Musculoskeletal: denies: tenderness, stiffness Neurological: denies: numbness, syncope, weakness Psychological: denies: anxiety, depression - Vital signs BP: [148/85] HR: [95] RR: [18] Tmax: [99.1F] Pox: [97]% on [RA] Wt: [60.40kg] - Physical Exam Constitutional: NAD, awake, alert and oriented -Constitutional: Appears frail and in poor health HEENT: normocephalic and atraumatic Neck: supple, trachea midline Chest: no-tender to palpation, no lesions Heart: RRR, no murmurs/rubs/gallops, no edema Lungs: CTAB, no respiratory distress Abdomen: soft, non-tender -Abdomen: PEG tube in place Musculoskeletal: normal structure, ROM grossly normal Neurological: no focal deficit, normal sensation Skin: no rash/lesions, no jaundice Heme/Lymphatic: no purpura, no petechia Psychiatric: normal mood and affect FMR H&P: Results - Labs Result Diagrams: 06/10/20 04:09 06/10/20 12:07 Lab results: WBC 5.5 thou/uL (4.8-10.8) 06/09/20 22:58 Hgb 9.0 g/dL (14.0-18.0) L 06/09/20 22:58 Hct 26.7 % (42.0-52.0) L 06/09/20 22:58 MCV 101.0 fL (78.0-98.0) H 06/09/20 22:58 Plt Count 186 thou/uL (130-400) 06/09/20 22:58 Band Neuts % (Manual) 4 % (5-11) L 06/09/20 22:58 Sodium 119 mmol/L (136-145) L* 06/09/20 22:58 Potassium 4.6 mmol/L (3.5-5.1) 06/09/20 22:58 Chloride 85 mmol/L (98-107) L 06/09/20 22:58 Carbon Dioxide 25 mmol/L (23-31) 06/09/20 22:58 BUN 16 mg/dL (8.4-25.7) 06/09/20 22:58 Creatinine 0.57 mg/dL (0.7-1.3) L 06/09/20 22:58 Glucose 90 mg/dL (80-115) 06/09/20 22:58 Lactic Acid 0.4 mmol/L (0.5-2.2) L 06/09/20 22:58 Calcium 7.9 mg/dL (7.8-10.44) 06/09/20 22:58 Total Bilirubin 0.3 mg/dL (0.2-1.2) 06/09/20 22:58 AST 29 U/L (5-34) 06/09/20 22:58 ALT 15 U/L (8-55) 06/09/20 22:58 Alkaline Phosphatase 93 U/L (40-110) 06/09/20 22:58 Serum Total Protein 6.6 g/dL (5.8-8.1) 06/09/20 22:58 Albumin 3.2 g/dL (3.4-4.8) L 06/09/20 22:58 Urine Ketones Negative mg/dL (Negative) 06/09/20 23:50 Urine Blood Negative (Negative) 06/09/20 23:50 Urine Nitrite Negative (Negative) 06/09/20 23:50 Ur Leukocyte Esterase Negative Dionisio/uL (Negative) 06/09/20 23:50 FMR H&P: A/P - Problem List (1) Anemia Current Visit: No Status: Acute Code(s): D64.9 - ANEMIA, UNSPECIFIED (2) Hyponatremia Current Visit: No Status: Acute Code(s): E87.1 - HYPO-OSMOLALITY AND HYPONATREMIA (3) PEG (percutaneous endoscopic gastrostomy) status Current Visit: No Status: Acute Code(s): Z93.1 - GASTROSTOMY STATUS - Plan Hyponatremia likely 2/2 hypovolemia Patient has chronic hyponatremia ranging upper 120s to low 130s. Decrease from baseline today, currently 119. Likely due to chronic hypovolemia related to poor hydration with PEG tube feedings. Recieved NS 1 L in ED. -Repeat BMP in am. Max correction is 8 over 24 hours -Urine Na, urine osmolality, serum osmolality -Dietitian consult for optimizing PEG feeds -Strict I&Os -Speech therapy consult Anemia, likely chronic in nature Patient reports chronic low hemoglobin. On last admission, hgb was 6.9 and improved to 8-9 after treatment of GI bleeding. -Monitor with morning labs Squamous cell carcinoma of throat s/p chemo and radiation -Follows with Dr. Redding (rad/onc) -PEG tube in place Chronic cough 2/2 possible hx of emphysemia CXR and CTA showed no acute processes. Could have undiagnosed emphysemia given smoking hx of 1-2ppd for 40 years and report of cough for years. Likely worsened by SSC treatment. COVID neg. -Monitor -Consider Mark Viramontes after speech therapy eval Hx alcohol abuse disorder Previously drank 2 12-pack beers per day. LFTs unremarkable on admission. -Encourage continued abstinence PCP: None, [facility] call Code: Intubate only DVT Prophylaxis: Lovenox Dispo: admit to tele inpatient, LOS expected 2+ days FMR H&P: Upper Level - Plan Date/Time: 06/10/20 0201 IPaulina, have evaluated this patient and agree with findings/plan as outlined by internet sales representative resident. Pertinent changes/additions are listed here. 64 yo M with PMH squamous hypopharyngeal cancer s/p chemo presents to ED after a brief episode of dizziness/weakness after coughing at home. was concerned and wanted him to be evaluated. Patient denies any current dizziness, weakness, fatigue. Reports cough is chronic and unchanged since cancer diagnosis /treatment, he does have pink tinged sputum. All intake via PEG. Denies any change to regimen. At home uses 1.5 bottles (unknown what kind), 4 times daily. He lives at home with , has some form of therapy/assistance in [place]. Is working with speech therapy outpatient with plan for swallow studies this coming week. Next appt with Dr. Redding in 1-2 months. Gen: NAD, sitting up in bed, coughing during exam Heart: RRR, no murmur Lungs: limited exam as patient is coughing during auscultation Ext: no edema Neuro: A&Ox3 Severe Hyponatremia, likely hypovolemic -Na+ 119 but currently asymptomatic, chronic with unknown duration in setting of persistent relative hyponatremia, baseline 128-135. -No daily medications -Pending serum osm, urine studies -goal for slow sodium correction, no more than 8 in first 24 hours (119 @ 2300 on 06/09) -Getting 1 L NS in ED, will check BMP 4 hours after initial draw. Will reassess correction at that point. -Plan for q4h BMP and will space out checks throughout day today, strict I/Os -Consult storage facility housekeeper for PEG feeding recommendations Macrocytic anemia, stable -Hgb 9, continue to monitor Chronic problems per internet sales representative note IVF: s/p 1L, SL for now Ppx: lovenox Diet: NPO PCP: patient cannot remember name, physician in [place] or [facility] Attending: Doug Dispo: admit to telemetry inpatient, closely monitor Na+ Addendum - Attending - Attending Attestation Date/Time: 06/10/20 9390 I personally evaluated the patient and discussed the management with Dr. Mcnally. I agree with the History, Examination, Assessment and Plan documented above with any addition or exceptions noted below. The patient admitted with syncopal symptoms and was found to have hyponatremia. During my exam he stated that his would give him 10-12 red solo cups full of water with his feeds and he states he would vary his feeds depending on how he felt. He states he never really understood how much water and feeds he needed. cortisol level and acth stim test is being ordered. Will get dietary involved to help with regimen. Will monitor on tele.
[2020-06-10 04:22] LABS: Hemoglobin 9.4 g/dL (14.0-18.0); Mean Corpuscular HGB CONC 33.2 g/dL (32.0-36.0); Mean Corpuscular Hemoglobin 33.4 pg (27.0-31.0); Mean Platelet Volume 6.8 fL (7.4-10.4); Platelet Count 162 thou/uL (130-400); RBC Distribution Width 14.5 % (11.5-14.5); White Blood Cell (WBC) Count 4.3 thou/uL (4.8-10.8)
[2020-06-10 04:42] LABS: Anion Gap 10 mmol/L (10-20); BUN (Urea Nitrogen) 14 mg/dL (8.4-25.7); Calc. Creatinine Clearance 108 mL/min (70-130); Calcium 8.2 mg/dL (7.8-10.44); Carbon Dioxide 27 mmol/L (23-31); Chloride 88 mmol/L (98-107); Estimated GFR-MDRD Greater than 90; Glucose 97 mg/dL (80-115); Potassium 4.1 mmol/L (3.5-5.1); Sodium 121 mmol/L (136-145)
[2020-06-10 04:51] LABS: Band 2 % (5-11); Hypochromia SLIGHT = 6-15 cells (100X) (0-5/hpf); Lymphocytes 7 % (21-51); MDiff Complete? YES; Monocytes 20 % (0-10); Neutrophil 71 % (42-75); Platelet Morphology Comment Appears Adequate
[2020-06-10] MEDS ORDERED: Cosyntropin 250 MCG VIAL SLOW IVP SCH (05:15)
[2020-06-10] MEDS ORDERED: Sodium Chloride 0.9% 1,000 ML IV SCH ×2 (05:30)
--- NOTE | 2020-06-10 07:13 | PDOC.FM ---
- Objective Vital Signs & Weight: Vital Signs (12 hours) Temp Pulse Resp BP Pulse Ox 06/10/20 04:10 98.9 F 92 20 141/67 H 95 06/10/20 02:13 98.5 F 89 20 104/63 96 Weight Weight 60.838 kg I&O: 06/09/20 06/10/20 06/11/20 06:59 06:59 06:59 Intake Total 681 Output Total 200 Balance 481 Result Diagrams: 06/10/20 04:09 06/10/20 04:09
[2020-06-10] MEDS: Enoxaparin Sodium 40 MG/0.4 ML SYRINGE SC SCH (08:26)
[2020-06-10 08:55] LABS: Anion Gap 10 mmol/L (10-20); BUN (Urea Nitrogen) 11 mg/dL (8.4-25.7); Calc. Creatinine Clearance 116 mL/min (70-130); Calcium 8.1 mg/dL (7.8-10.44); Carbon Dioxide 25 mmol/L (23-31); Chloride 92 mmol/L (98-107); Estimated GFR-MDRD Greater than 90; Glucose 92 mg/dL (80-115); Potassium 4.1 mmol/L (3.5-5.1); Sodium 123 mmol/L (136-145)
[2020-06-10 12:36] LABS: Anion Gap 10 mmol/L (10-20); BUN (Urea Nitrogen) 10 mg/dL (8.4-25.7); Calc. Creatinine Clearance 108 mL/min (70-130); Calcium 8.2 mg/dL (7.8-10.44); Carbon Dioxide 24 mmol/L (23-31); Chloride 91 mmol/L (98-107); Estimated GFR-MDRD Greater than 90; Glucose 99 mg/dL (80-115); Potassium 4.4 mmol/L (3.5-5.1); Sodium 121 mmol/L (136-145)
[2020-06-10 15:04] LABS: SARS-CoV-2 MS2 Positive; SARS-CoV-2 N Gene Negative; SARS-CoV-2 S Gene Negative; SARS-CoV-2 by NAA Not Detected (NotDetected); SARS-CoV-2 orf1ab Negative
[2020-06-10 18:31] LABS: Anion Gap 12 mmol/L (10-20); BUN (Urea Nitrogen) 9 mg/dL (8.4-25.7); Calc. Creatinine Clearance 116 mL/min (70-130); Calcium 8.1 mg/dL (7.8-10.44); Carbon Dioxide 21 mmol/L (23-31); Chloride 93 mmol/L (98-107); Estimated GFR-MDRD Greater than 90; Glucose 96 mg/dL (80-115); Potassium 4.1 mmol/L (3.5-5.1); Sodium 122 mmol/L (136-145)
[2020-06-11 05:06] LABS: Anion Gap 11 mmol/L (10-20); BUN (Urea Nitrogen) 9 mg/dL (8.4-25.7); Calc. Creatinine Clearance 118 mL/min (70-130); Calcium 8.3 mg/dL (7.8-10.44); Carbon Dioxide 26 mmol/L (23-31); Chloride 90 mmol/L (98-107); Estimated GFR-MDRD Greater than 90; Glucose 94 mg/dL (80-115); Sodium 123 mmol/L (136-145)
--- NOTE | 2020-06-11 07:00 | PDOC.FM ---
- Subjective Subjective: Pt is doing well today. He has not had any episodes of syncope/pre-syncope. He had a short run of SVT yesterday lasting 4 beats and converting to NSR. He is tolerating PEG tube feeds. Remains nothing by mouth. Dietary reached out to to counselor camp on proper feeds. - Objective Vital Signs & Weight: Vital Signs (12 hours) Temp Pulse Resp BP Pulse Ox 06/11/20 04:00 98.3 F 97 15 137/74 97 06/11/20 01:03 98 06/11/20 00:00 148/76 H 06/10/20 19:40 98.3 F 91 16 152/114 H 98 Weight Admit Weight 60.838 kg Weight 59.33 kg I&O: 06/10/20 06/11/20 06/12/20 06:59 06:59 06:59 Intake Total 681 1417 Output Total 200 1315 Balance 481 102 Result Diagrams: 06/10/20 04:09 06/11/20 04:15 EKG Reviewed by me: Yes Phys Exam - Physical Examination Constitutional: NAD HEENT: moist MMs, sclera anicteric Neck: no JVD, full ROM Respiratory: no wheezing, clear to auscultation bilateral Cardiovascular: RRR, no significant murmur Gastrointestinal: soft, positive bowel sounds Musculoskeletal: no edema, pulses present Neurological: moves all 4 limbs Psychiatric: normal affect, A&O x 3 Skin: no rash, cap refill <2 seconds Dx/Plan (1) Anemia Code(s): D64.9 - ANEMIA, UNSPECIFIED Status: Acute (2) Dysphagia Code(s): R13.10 - DYSPHAGIA, UNSPECIFIED Status: Acute Qualifiers: (3) Hyponatremia Code(s): E87.1 - HYPO-OSMOLALITY AND HYPONATREMIA Status: Acute (4) PEG (percutaneous endoscopic gastrostomy) status Code(s): Z93.1 - GASTROSTOMY STATUS Status: Acute (5) Essential hypertension Code(s): I10 - ESSENTIAL (PRIMARY) HYPERTENSION Status: Chronic - Plan Plan: Pt is a 64 yo male with PMH significant for squamous cell esophageal carcinoma who presented for a pre-syncopal episode and found to be acute on chronic hyponatremic: # Acute on Chronic Hyponatremia Likely 2/2 poor tolerance to PEG tube feeds, excessive free water. Our goal is high 120's. - fluids d/c yesterday - has been 24 hours since initial Na of 119 and currently 123. Will allow pt to correct with diet. - recheck Na in am # Pre-syncope Possibly secondary to poor PO intake over previous 2 weeks. He did have 2 runs of SVT, asymptomatic and converted to NSR. - if he has a prolonged run of SVT will consult cardiology - will perform echocardiogram, carotid dopplers # Squamous Cell Carcinoma # PEG Tube feeds - aware - hemmer chainstitch consulted, continue Jevity tube feeds with minimal free water flushes # Anemia - stable at ~9 - recheck today to assess for dilution in the setting of fluids # SVT - as above # Chronic Cough - monitor - likely secondary to SCC and possible aspiration in the setting of PEG tube feeds VTE: Lovenox Fluids: nothing by mouth Diet: Tube feeds Code: Intubate only Dispo: remain on tele until correction of hyponatremia Addendum - Attending - Attending Attestation Date/Time: 06/11/20 1111 I personally evaluated the patient and discussed the management with Dr. Benavidez. I agree with the History, Examination, Assessment and Plan documented above with any addition or exceptions noted below. Pt's hyponatremia is correcting. Appreciate dietary recs regarding feeds and free water. Will conitnue to trend sodium. Adding echo and carotid doppler for pre-syncope workup. Will continue to monitor on tele.
[2020-06-11] MEDS: Enoxaparin Sodium 40 MG/0.4 ML SYRINGE SC SCH (08:18)
--- NOTE | 2020-06-11 11:43 | RAD ---
Exam: Modified barium swallow HISTORY: Dysphagia, unspecified. Feeding difficulties Exposure: 1.1 minutes. 0.445 brower per centimeter square FINDINGS: In the presence of speech pathologist, the patient was ministered thin liquid, nectar thick , honey thick and pudding consistencies. There is penetration and aspiration with the thin liquid and nectar thick consistencies. There is pooling with all of the consistencies. IMPRESSION: Please refer to speech pathologist report for feeding recommendation
[2020-06-11 12:51] LABS: Hemoglobin 9.5 g/dL (14.0-18.0)
--- NOTE | 2020-06-11 20:56 | ULT ---
CAROTID DOPPLER: Date: 06/11/2020 INDICATION: Syncope. TECHNIQUE: Ultrasound and Doppler studies performed to the extracranial carotid arteries. Color Doppler, spectra l analysis, and velocity recordings obtained. FINDINGS: Ultrasound images show diffuse intimal thickening and diffuse echogenic plaque throughout both extrac ranial carotid systems. Increased velocities in the right internal carotid artery are recorded at 339 cm/second. This indicat es severe stenosis. Significant stenosis in the left internal carotid artery recorded at 198 cm/second, which also indica nicol severe stenosis. Neither vertebral artery identified by ultrasound. IMPRESSION: 1. Diffuse echogenic plaque throughout both extracranial carotid systems. 2. Evidence of hemodynamically significant stenosis in both internal carotid arteries. Velocities in dicate severe stenosis bilaterally. Recommend cardiovascular surgical consultation with catheter bettina ography. POS: [facility]
[2020-06-12 04:39] LABS: Anion Gap 10 mmol/L (10-20); BUN (Urea Nitrogen) 14 mg/dL (8.4-25.7); Calc. Creatinine Clearance 105 mL/min (70-130); Calcium 8.5 mg/dL (7.8-10.44); Carbon Dioxide 28 mmol/L (23-31); Chloride 91 mmol/L (98-107); Estimated GFR-MDRD Greater than 90; Glucose 98 mg/dL (80-115); Potassium 4.3 mmol/L (3.5-5.1); Sodium 125 mmol/L (136-145)
--- NOTE | 2020-06-12 07:28 | PDOC.FM ---
- Subjective Subjective: Pt is a 64 yo male who presents for hyponatremia, presyncope. No more episodes of presyncope. He did not have any significant overnight tele events. He is tolerating his tube feeds. He sees his PCP near [place], Dr. Cano. - Objective Vital Signs & Weight: Vital Signs (12 hours) Temp Pulse Resp BP Pulse Ox 06/12/20 04:00 98.2 F 91 16 132/72 96 06/11/20 19:50 94 L 06/11/20 19:35 98.8 F 88 18 152/74 H 94 L Weight Admit Weight 60.838 kg Weight 58.604 kg I&O: 06/11/20 06/12/20 06/13/20 06:59 06:59 06:59 Intake Total 1417 2028 Output Total 1315 Balance 102 2028 Result Diagrams: 06/11/20 12:39 06/12/20 03:47 EKG Reviewed by me: Yes Phys Exam - Physical Examination Constitutional: NAD HEENT: PERRLA, moist MMs Neck: no JVD appreciated carotid bruits Respiratory: no wheezing, clear to auscultation bilateral Cardiovascular: RRR, no significant murmur Gastrointestinal: soft, positive bowel sounds Musculoskeletal: no edema, pulses present Neurological: moves all 4 limbs Psychiatric: normal affect, A&O x 3 Skin: no rash Dx/Plan (1) Anemia Code(s): D64.9 - ANEMIA, UNSPECIFIED Status: Acute (2) Dysphagia Code(s): R13.10 - DYSPHAGIA, UNSPECIFIED Status: Acute Qualifiers: (3) Hyponatremia Code(s): E87.1 - HYPO-OSMOLALITY AND HYPONATREMIA Status: Acute (4) PEG (percutaneous endoscopic gastrostomy) status Code(s): Z93.1 - GASTROSTOMY STATUS Status: Acute (5) Essential hypertension Code(s): I10 - ESSENTIAL (PRIMARY) HYPERTENSION Status: Chronic - Plan Plan: Pt is a 64 yo male with PMH significant for squamous cell esophageal carcinoma who presented for a pre-syncopal episode and found to be acute on chronic hyponatremic: # Acute on Chronic Hyponatremia Likely 2/2 poor tolerance to PEG tube feeds, excessive free water. Our goal is high 120's. - fluids d/c yesterday - has been 24 hours since initial Na of 119 and currently 123. Will allow pt to correct with diet. - recheck Na in am # Pre-syncope likely 2/2 severe carotid artery stenosis which has been previously diagnosed but he did not have treatment at the time due to dx of squamous cell carcinoma - monitor on tele - if he has a prolonged run of SVT will consult cardiology - carotid dopplers as above - echo revealed no structural abnormalities # Severe carotid artery stenosis bilaterally - as above - consult CV surg # Squamous Cell Carcinoma # PEG Tube feeds - aware - mis manager consulted, continue Jevity tube feeds with minimal free water flushes # Anemia - stable at ~9 - recheck today to assess for dilution in the setting of fluids # SVT - as above # Chronic Cough - monitor - likely secondary to SCC and possible aspiration in the setting of PEG tube feeds VTE: Lovenox Fluids: nothing by mouth Diet: Tube feeds Code: Intubate only Dispo: continue to monitor resolution of hyponatremia, will discuss artery stenosis with CV surg to see if inpt treatment is warranted Addendum - Attending - Attending Attestation Date/Time: 06/12/20 9533 I personally evaluated the patient and discussed the management with Dr. Benavidez. I agree with the History, Examination, Assessment and Plan documented above with any addition or exceptions noted below. The patient's carotid doppler shows severe stenosis. Will consult CV surgery. The patient did admit with presyncope. Sodium is slowly improving, will continue to monitor. Monitor on tele for arrhythmia.
[2020-06-12] MEDS: Enoxaparin Sodium 40 MG/0.4 ML SYRINGE SC SCH (08:46)
[2020-06-12 13:54] VITALS: BMI 20.8
[2020-06-12] MEDS: Carvedilol 3.125 MG TAB PER TUBE SCH (16:57)
[2020-06-12] MEDS ORDERED: Carvedilol 3.125 MG TAB PO SCH (17:00)
--- NOTE | 2020-06-12 19:55 | CON ---
DATE OF CONSULTATION: 06/12/2020 REQUESTING PHYSICIAN: Dr. Benavidez. CHIEF COMPLAINT: Near syncope. HISTORY OF PRESENT ILLNESS: The patient is a 64-year-old smoker, who a few months ago was diagnosed with squamous cell carcinoma of the oropharynx and about a month ago, he completed chemo and radiotherapy for it. During his initial evaluation, he reports that carotid stenoses were identified. This was at [facility] in [place]. He sought treatment here because of proximity to family. For many years, the patient has had a chronic cough. It has worsened recently and that was a big part of what led to the investigations necessary the diagnosis of his squamous cell carcinoma. On the day of presentation the day before yesterday, he had a particularly severe coughing spell, became dizzy, and felt like he was about to pass out. He had no lateralizing symptoms, such as weakness or numbness in extremity and he has never had any transient eye, speech, facial, or extremity symptoms to suggest TIAs. The patient claims to have no other medical problems and takes no medications on a regular basis. He is a long-term smoker. He has no medical allergies. The patient is adopted and has no knowledge of his biologic family's medical history. REVIEW OF SYSTEMS: As above. PHYSICAL EXAMINATION: GENERAL: He appears 10 or 20 years older than his stated age. HEENT: He has temporal wasting. NECK: He has an exaggerated kyphosis of his neck. There is some tautness to the skin of his neck, but no obvious radiation almazan. CHEST WALL: He has a cannulated MediPort in place in his left upper chest. LUNGS: He has distant breath sounds. HEART: Regular rate and rhythm. ABDOMEN: He has a PEG tube in place. NEUROLOGIC: Cranial nerves 2 through 12 are grossly intact with the possible exception of a voice that is quite hoarse at baseline. He has no focal weakness in his arms or his legs. LABORATORY: His white count is 5.5, hemoglobin 9.0, hematocrit 26.7, platelets 186,000 and MCV is 101.0. He has a chronic hyponatremia with his sodiums typically running in the 120s to 130s but it was in the upper one teens on presentation. Glucose was 90, BUN 16, and creatinine 0.57. LFTs were normal. Albumin was 3.2. COVID was nonreactive. His chest x-ray shows perhaps a slightly elevated left hemidiaphragm. MediPort in the left subclavian approach with the tip in the superior vena cava. His carotid ultrasound shows heavy complex plaque, perhaps worse in the right than on the left with turbulent flow on color Doppler. On the right side, his internal carotid velocities were 340, 233, and 120. His common carotid velocities were 100, 109, and 123 for a ratio of 2.77. On the left, his internal carotid velocities were 75, 173, and 198. His common carotid velocities were 83, 94, and 97 for a ratio of 2.04. IMPRESSION AND RECOMMENDATIONS: Bilateral significant carotid stenosis, worse on the right than on the left. They appeared to be asymptomatic and probably patent overall in his current presentation having recently undergone radiotherapy to his head and neck, I would probably pursue this next with a contrast study, but given the present circumstances, he is really not a candidate for endarterectomy this early after radiation the field to be quite hostile and he may never really be a good candidate for endarterectomy depending upon the quality of his tissue down the road. In the absence of symptoms, he is probably not an appropriate candidate for stenting. In lieu of endarterectomy, I would at this point, treat him with aspirin. I will plan on seeing him in the office in about [address] with another ultrasound. Job ID: [id number]
[2020-06-13 04:41] LABS: Anion Gap 10 mmol/L (10-20); BUN (Urea Nitrogen) 17 mg/dL (8.4-25.7); Calc. Creatinine Clearance 105 mL/min (70-130); Calcium 8.8 mg/dL (7.8-10.44); Carbon Dioxide 30 mmol/L (23-31); Chloride 91 mmol/L (98-107); Estimated GFR-MDRD Greater than 90; Glucose 102 mg/dL (80-115); Potassium 4.4 mmol/L (3.5-5.1); Sodium 127 mmol/L (136-145)
--- NOTE | 2020-06-13 07:13 | PDOC.FM ---
- Subjective Subjective: Pt continued to show PAT overnight. He tolerated a low dose of coreg well. He is upset he is still in the hospital. He is tolerating tube feeds. - Objective Vital Signs & Weight: Vital Signs (12 hours) Temp Pulse Resp BP Pulse Ox 06/13/20 06:48 96 06/13/20 03:49 98.3 F 85 20 130/68 96 06/12/20 20:02 97 06/12/20 19:14 98.7 F 86 18 118/60 97 Weight Admit Weight 60.838 kg Weight 59.103 kg I&O: 06/12/20 06/13/20 06/14/20 06:59 06:59 06:59 Intake Total 2028 2096 Balance 2028 2096 Result Diagrams: 06/11/20 12:39 06/13/20 03:56 Phys Exam - Physical Examination Constitutional: NAD HEENT: PERRLA, moist MMs Neck: no JVD, full ROM Respiratory: no wheezing, clear to auscultation bilateral Cardiovascular: RRR, no significant murmur Gastrointestinal: soft, positive bowel sounds PEG tube in place Musculoskeletal: no edema, pulses present Neurological: non-focal, normal sensation Psychiatric: normal affect, A&O x 3 Skin: no rash, cap refill <2 seconds Dx/Plan (1) Anemia Code(s): D64.9 - ANEMIA, UNSPECIFIED Status: Acute (2) Dysphagia Code(s): R13.10 - DYSPHAGIA, UNSPECIFIED Status: Acute Qualifiers: (3) Hyponatremia Code(s): E87.1 - HYPO-OSMOLALITY AND HYPONATREMIA Status: Acute (4) PEG (percutaneous endoscopic gastrostomy) status Code(s): Z93.1 - GASTROSTOMY STATUS Status: Acute (5) Essential hypertension Code(s): I10 - ESSENTIAL (PRIMARY) HYPERTENSION Status: Chronic - Plan Plan: Pt is a 64 yo male with PMH significant for squamous cell esophageal carcinoma who presented for a pre-syncopal episode and found to be acute on chronic hyponatremic: # Acute on Chronic Hyponatremia - continue PEG tube feeds - follow up with PCP # Pre-syncope likely 2/2 severe carotid artery stenosis vs arrhythmia - coreg daily - CV surg will not perform surgery for carotid artery stenosis - consult EP, Cards # Severe carotid artery stenosis bilaterally - as above - consult CV surg # Squamous Cell Carcinoma # PEG Tube feeds - aware - road worker consulted, continue Jevity tube feeds with minimal free water flushes # Anemia - stable at ~9 - recheck today to assess for dilution in the setting of fluids # SVT, PAT, Non-sustained VTach - as above # Chronic Cough - monitor - likely secondary to SCC and possible aspiration in the setting of PEG tube feeds VTE: Lovenox Fluids: nothing by mouth Diet: Tube feeds Code: Intubate only Dispo: pending cardiology, EP consult Addendum - Attending - Attending Attestation Date/Time: 06/13/20 9630 I personally evaluated the patient and discussed the management with Dr. Benavidez. I agree with the History, Examination, Assessment and Plan documented above with any addition or exceptions noted below. Pt with PAT overnight, had nonsustained v-tach yeseterday. CV surg evaluated pt for carotid stenosis who recommended f/u in 6 months to look at intervention. We spoke with cardiology today who recommended with consult EP and get a stress test. Later in the morning the patient is insistent on discharge and does not want the stress test. Pt was counseled on risks and will be discharged home with strong recommendation that he have a stress test and likely needs a holter monitor. Hyponatremia is improving.
[2020-06-13] MEDS: Carvedilol 3.125 MG TAB PER TUBE SCH (08:09)
[2020-06-13] MEDS: Enoxaparin Sodium 40 MG/0.4 ML SYRINGE SC SCH (08:09)
[2020-06-13] MEDS ORDERED: Aspirin 81 mg Enteric Coated Tablet PER TUBE SCH (09:00)
[2020-06-13 09:43] LABS: Troponin I 0.023 ng/mL (< 0.028)
[2020-06-13 12:01] VITALS: TEMP 98
--- NOTE | 2020-06-13 12:01 | PQF ---
CLINICAL DOCUMENTATION CLARIFICATION FORM: Dear Dr. Benavidez Date: 06/13/20 Please exercise your independent, professional judgment in responding to the clarification form. Clinical indicators are provided on the bottom of this form for your review. Please check appropriate box(es): [ ] Protein Calorie Malnutrition: [ x ] Mild [ ] Moderate [ ] Severe [ ] Other Malnutrition (please specify) __ [ ] Underweight without malnutrition [ ] Cachexia [ ] Other diagnosis [ ] Unable to determine In addition, please specify: Present on Admission (POA): [ x ] Yes [ ] No [ ] Unable to determine For continuity of documentation, please document condition throughout progress notes and discharge summary. Thank You. 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
[2020-06-13 12:54] VITALS: BP 119/60
[2020-06-13 13:00] LABS: Cardiac Risk 2.8 (Less than 4.5)
--- NOTE | 2020-06-14 14:19 | DIS ---
DATE OF ADMISSION: 06/10/2020 DATE OF DISCHARGE: 06/13/2020 RESIDENT: Juventino Benavidez DO ADMITTING ATTENDING: Yamil Schmidt MD DISCHARGE ATTENDING: Diamond Chaves MD CONSULTS: 1. Cardiovascular Surgery, Dr. Tiburcio Leon. 2. EP, Dr. Quentin Love. PROCEDURES: 1. Chest x-ray on 06/09/2020 revealed no radiographic evidence of acute pulmonary process. 2. CTA of chest and thorax on 06/09/[address] evidence of PE. 3. Barium swallow study on 06/11/2020, revealed aspiration with thin liquid and nectar thick liquid consistencies. 4. Echocardiogram on 06/11/2020, revealed left ventricular ejection fraction estimated at 55% to 60%. Mild concentric left ventricular hypertrophy. Diastolic dysfunction. Mild mitral regurgitation. Mild tricuspid regurgitation. Normal pulmonary artery pressure. PRIMARY DIAGNOSES: 1. Acute on chronic hyponatremia. 2. Presyncopal episode, likely secondary to severe carotid artery stenosis versus arrhythmia. 3. Squamous cell carcinoma of the throat. 4. Supraventricular tachycardia, paroxysmal atrial tachycardia, nonsustained ventricular tachycardia. SECONDARY DIAGNOSES: 1. Chronic anemia. 2. Chronic cough. DISCHARGE MEDICATIONS: 1. Aspirin 81 mg daily. 2. Coreg 3.125 mg b.i.d. 3. Atorvastatin 40 mg p.o. daily. DISCONTINUE MEDICATIONS: None. HISTORY OF PRESENT ILLNESS/HOSPITAL COURSE: Moris Dumont is a 64-year-old gentleman with past medical history significant for chronic anemia, squamous cell carcinoma of the throat, status post chemotherapy and radiation therapy, PEG tube placement due to cancer, chronic cough, who presented to the emergency department with a presyncopal episode. Subsequently, he was found to be acutely hyponatremic on chronic hyponatremia. In terms of his hyponatremia, the patient normally runs high 120s, low 130s and was found to be 119 on presentation. He did not have any neurologic or altered mental status abnormalities. The patient had a normal TSH, normal cortisol. After further investigation, the patient was drinking 160 ounces through his PEG tube daily and had decreased his Jevity intake. Due to this, we consulted dietitian, who placed him on proper diet with decreased free water intake. Daily the patient's sodium increased and on day of discharge it was 127, about back to his baseline. Proper feeding was discussed with the . In regard to his presyncopal episode, carotid artery ultrasound revealed severe carotid artery stenosis. The patient had been told this before and had seen Cardiovascular Surgery. No surgery was performed due to his throat cancer being discovered at the same time. We consulted Cardiovascular Surgery, who in the setting of recent chemo and radiation therapy did not think he was a good candidate for an endarterectomy. They would like to see the patient in 6 months. He also had few arrhythmias including PAT, SVT, nonsustained ventricular tachycardia. We discussed the case with Cardiology, who suggested a cardiac stress test. The patient denied this. We counseled the patient on importance of the study, but again the patient still denied. We encouraged him to follow up in the outpatient setting with Cardiology. Dr. Pride was consulted as well, but was unable to make any recommendations in the setting of the patient wanting to leave. We did start him on Coreg 3.125 mg b.i.d. and hopes to help control any arrhythmias. We discussed the patient's need to follow up with Cardiology, Cardiovascular Surgery, his PCP. He needs to see his PCP at least within the next week. Due to the atherosclerotic disease, we went ahead and started the patient on aspirin and atorvastatin 40 mg daily. DISPOSITION: Stable. DISCHARGE INSTRUCTIONS: 1. Location: [facility]. 2. Diet: Heart healthy via PEG tube. 3. Activity: As tolerated. 4. Followup: a. Follow up with CV Surgery in 6 months. b. Follow up with Cardiology as soon as possible. c. Follow up with primary care physician within the next week. Job ID: [id number] MTDD
--- NOTE | 2020-06-15 11:51 | EKG ---
Test Reason : Blood Pressure : / mmHG Vent. Rate : 094 BPM Atrial Rate : 094 BPM P-R Int : 162 ms QRS Dur : 112 ms QT Int : 360 ms P-R-T Axes : 000 034 -01 degrees QTc Int : 450 ms Sinus rhythm with Premature atrial complexes Low voltage QRS Incomplete right bundle branch block Septal infarct , age undetermined Abnormal ECG Confirmed by REYNA AQUINO ([id number]), photograph editor NATALIE CARRILLO ([id number]) on 06/15/2020 11:51:04 AM Referred By: Confirmed By:REYNA AQUINO
== END 2020-06-13 13:06 | disposition home or self-care (01) | DRG 641 ==
LOC: ERS 22:17 → 2NO 06-10 02:47
PROVIDERS: ADMIT Family Medicine; ATTEND Family Medicine
DX: E87.1 Hypo-osmolality and hyponatremia (principal); I47.1 Supraventricular tachycardia; E44.1 Mild protein-calorie malnutrition; I47.2 Ventricular tachycardia; C14.0 Malignant neoplasm of pharynx, unspecified; I10 Essential (primary) hypertension; Z20.828 Contact with and (suspected) exposure to other viral communicable diseases; D53.9 Nutritional anemia, unspecified; I25.10 Atherosclerotic heart disease of native coronary artery without angina pectoris; J43.9 Emphysema, unspecified; I65.23 Occlusion and stenosis of bilateral carotid arteries; F10.10 Alcohol abuse, uncomplicated; Z68.21 Body mass index [BMI] 21.0-21.9, adult; I08.1 Rheumatic disorders of both mitral and tricuspid valves; Z93.1 Gastrostomy status; Z87.891 Personal history of nicotine dependence; Z79.899 Other long term (current) drug therapy; Z92.21 Personal history of antineoplastic chemotherapy; Z92.3 Personal history of irradiation
CPT/HCPCS: 36415; 36416; 71045; 71275; 74230; 80048; 80053; 80061; 80400; 81003; 83605; 83735; 83930; 83935; 84300; 84443; 84484; 85014; 85018; 85025; 87040; 87635; 93005; 93306; 93880; 96360; J0834; J1642; J1650; Q9967; U0003